=== PATIENT | male | born 1965 | race Caucasian/White ===

== ENCOUNTER 2020-03-20 14:53 | Outpatient (REF) | payer OTHER, SELFPAY ==
--- NOTE | 2020-03-20 14:59 | XR_ITS ---
EXAMINATION: XR CHEST CLINICAL INFORMATION: R50.9 - Fever, unspecified COMPARISON: CT abdomen 08/11/2009 TECHNIQUE: 2 views of the chest were obtained. FINDINGS: The lungs are clear. Groundglass opacity or effusion. The heart is normal in size and the hilar and mediastinal contours are normal. There is broad-based exostosis inferior aspect right first costochondral junction. Bony structures are otherwise unremarkable. XR/XR chest 2V IMPRESSION: Unremarkable examination.
== END 2020-03-20 14:54 | disposition home or self-care (01) ==
LOC: HO.HMGCX 14:53
PROVIDERS: PCP Internal Medicine; Visit Provider Hospitalist
DX: R50.9 Fever, unspecified (principal)
CPT/HCPCS: 71046

== ENCOUNTER 2020-03-20 14:58 | Outpatient (REF) | payer OTHER, SELFPAY | END 2020-03-20 14:59 | disposition home or self-care (01) | LOC: HO.LAB 14:58 | PROVIDERS: Visit Provider Hospitalist | DX: Z20.828 Contact with and (suspected) exposure to other viral communicable diseases (principal) | CPT/HCPCS: U0003 ==

== ENCOUNTER 2021-03-03 06:40 | Outpatient (REF) | payer OTHER, SELFPAY ==
[2021-03-03 11:36] LABS: MANUAL DIFF FLAG NO
[2021-03-03 11:42] LABS: Basophils Percent Auto 0.5 % (0-2); Eosinophils Absolute Auto 0.2 X10*3/uL (0.0-0.4); Hematocrit 46.9 % (42.0-52.0); Hemoglobin 15.8 g/dl (14.0-18.0); Imm Gran Abs Auto 0.06 X10*3/uL (0.00-0.03); Imm Gran Pct Auto 0.8 % (0.0-0.4); Lymphocytes Absolute Auto 1.9 X10*3/uL (1.2-4.9); Mean Corpuscular HGB Conc 33.7 g/dl (31.0-36.0); Mean Corpuscular Hemoglobin 33.2 pg (27.0-33.0); Mean Corpuscular Volume 98.5 fL (80.0-98.0); Mean Platelet Volume 11.1 fL (9.4-12.4); Monocytes Absolute Auto 0.6 X10*3/uL (0.1-1.2); Monocytes Percent Auto 7.2 % (2-11); Neutrophils Percent Auto 64.5 % (45-73); Platelet Count 231 X10*3/uL (160-400); Red Blood Count 4.76 X10*6/uL (4.60-5.80); Red Cell Distribution Width 11.9 % (11.0-16.0); White Blood Count 7.7 X10*3/uL (4.8-10.8)
[2021-03-03 12:18] LABS: Alanine Aminotransferase 19 U/L (0-40); Albumin Level 3.8 g/dL (3.5-5.0); Alkaline Phosphatase 58 U/L (39-117); Anion Gap 12 (12-20); Aspartate Amino Transferase 19 U/L (5-37); Bilirubin Direct 0.2 mg/dL (0.0-0.5); Bilirubin Total 0.5 mg/dL (0.0-1.0); Blood Urea Nitrogen 12 mg/dL (9-16); Calcium 8.9 mg/dL (8.4-10.2); Carbon Dioxide 23 mmol/L (22-29); Chloride 106 mmol/L (96-108); Cholesterol 204 mg/dL; Estimated Glomerular Filt Rate > 60; Glucose Fasting 80 mg/dL (60-99); HDL Cholesterol 36 mg/dL; LDL Cholesterol Calculated 134 mg/dl; Potassium 4.2 mmol/L (3.3-5.1); Sodium 137 mmol/L (135-145); Total Protein 6.5 g/dL (6.5-8.0); Triglycerides 173 mg/dL
[2021-03-03 12:26] LABS: TSH reflex Free T4 1.28 uIU/mL (0.32-4.0)
== END 2021-03-03 06:41 | disposition home or self-care (01) ==
LOC: HO.HMGCLDS 06:40
PROVIDERS: PCP Internal Medicine; Visit Provider Internal Medicine
DX: I10 Essential (primary) hypertension (principal)
CPT/HCPCS: 36415; 80053; 80061; 80076; 84443; 85025

== ENCOUNTER 2021-10-17 09:06 | Outpatient (REF) | payer MEDICAID, SELFPAY ==
[2021-10-17 11:57] LABS: Alanine Aminotransferase 25 U/L (0-40); Albumin Level 4.3 g/dL (3.5-5.0); Alkaline Phosphatase 67 U/L (39-117); Anion Gap 11 (12-20); Aspartate Amino Transferase 19 U/L (5-37); Bilirubin Direct 0.3 mg/dL (0.0-0.5); Bilirubin Total 0.8 mg/dL (0.0-1.0); Blood Urea Nitrogen 12 mg/dL (9-16); Calcium 9.6 mg/dL (8.4-10.2); Carbon Dioxide 28 mmol/L (22-29); Chloride 105 mmol/L (96-108); Estimated Glomerular Filt Rate > 60; Glucose Random 103 mg/dL (60-115); Sodium 139 mmol/L (135-145); Total Protein 7.5 g/dL (6.5-8.0)
== END 2021-10-17 09:07 | disposition home or self-care (01) ==
LOC: HO.HMGCLDS 09:06
PROVIDERS: Visit Provider Internal Medicine
DX: Z00.01 Encounter for general adult medical examination with abnormal findings (principal); I10 Essential (primary) hypertension; E66.09 Other obesity due to excess calories
CPT/HCPCS: 36415; 80053; 82248

== ENCOUNTER 2022-04-17 07:45 | Outpatient (REF) | payer OTHER, SELFPAY ==
[2022-04-17 11:45] LABS: MANUAL DIFF FLAG NO
[2022-04-17 11:50] LABS: Basophils Absolute Auto 0.1 X10*3/uL (0.0-0.2); Basophils Percent Auto 0.8 % (0-2); Eosinophils Absolute Auto 0.1 X10*3/uL (0.0-0.4); Hematocrit 50.6 % (42.0-52.0); Imm Gran Abs Auto 0.05 X10*3/uL (0.00-0.03); Imm Gran Pct Auto 0.8 % (0.0-0.4); Lymphocytes Absolute Auto 2.8 X10*3/uL (1.2-4.9); Lymphocytes Percent Auto 42.8 % (20-40); Mean Corpuscular HGB Conc 33.6 g/dl (31.0-36.0); Mean Corpuscular Hemoglobin 33.2 pg (27.0-33.0); Mean Corpuscular Volume 98.8 fL (80.0-98.0); Mean Platelet Volume 10.8 fL (9.4-12.4); Monocytes Absolute Auto 0.6 X10*3/uL (0.1-1.2); Monocytes Percent Auto 8.8 % (2-11); Neutrophils Absolute Auto 2.9 x10*3/uL (2.0-8.3); Neutrophils Percent Auto 44.8 % (45-73); Platelet Count 255 X10*3/uL (160-400); Red Blood Count 5.12 X10*6/uL (4.60-5.80); Red Cell Distribution Width 11.9 % (11.0-16.0); White Blood Count 6.5 X10*3/uL (4.8-10.8)
[2022-04-17 12:28] LABS: Alanine Aminotransferase 16 U/L (0-40); Albumin Level 3.8 g/dL (3.5-5.0); Alkaline Phosphatase 51 U/L (39-117); Anion Gap 11 (12-20); Aspartate Amino Transferase 15 U/L (5-37); Bilirubin Total 0.7 mg/dL (0.0-1.0); Blood Urea Nitrogen 12 mg/dL (9-16); Calcium 9.1 mg/dL (8.4-10.2); Carbon Dioxide 27 mmol/L (22-29); Chloride 105 mmol/L (96-108); Cholesterol 228 mg/dL; Estimated Glomerular Filt Rate > 60; Glucose Fasting 90 mg/dL (60-99); HDL Cholesterol 41 mg/dL; LDL Cholesterol Calculated 138 mg/dl; Potassium 4.4 mmol/L (3.3-5.1); Sodium 139 mmol/L (135-145); Total Protein 6.7 g/dL (6.5-8.0); Triglycerides 247 mg/dL
== END 2022-04-17 07:46 | disposition home or self-care (01) ==
LOC: HO.HMGCLDS 07:45
PROVIDERS: PCP Internal Medicine; Visit Provider Internal Medicine
DX: E78.9 Disorder of lipoprotein metabolism, unspecified (principal); I10 Essential (primary) hypertension
CPT/HCPCS: 36415; 80053; 80061; 85025

== ENCOUNTER 2022-11-08 13:29 | Outpatient (AMB) | payer OTHER, SELFPAY ==
--- NOTE | 2022-11-08 13:29 | A.OFFPC_ITS ---
Vital Signs 11/08/22 13:30 Height 5 ft 10 in Weight 208 lb 6 oz BMI 29.9 BP 122/82 Blood Pressure Location Rt brachial Position Sitting Pulse 56 Pulse Source Pulse Oximeter Pulse Oximetry (%) 95 Oxygen Delivery Method Room Air Intake Visit Reasons: BP followup Allergies No Known Allergies Allergy (Verified 11/08/22 13:30) Medication List - Last Reconciled 11/08/22 by Eva Barros MD nadolol 40 mg PO DAILY 90 days valsartan 40 mg PO DAILY 90 days Tobacco use date assessed: 11/08/22 Dental Screening Dental Screen Date: 11/08/22 Did you have a dental visit in the last 12 months?: No Did you have a dental problem in the last 6 months where you did not have access to dental care?: No Was dental information given to patient?: No HPI BP followup HPI Details 57-year-old gentleman who was last seen March of this year and missed his regular follow-up appointment after that Patient usually comes every 6 months for follow-up appointment He is taking 2 blood pressure medications neural 40 mg once a day and valsartan 40 mg once a day blood pressure is well controlled patient is tolerating medications Once again explained to patient that it is very important that I see him at least every 6 months so I can keep an eye on his blood pressure and side effects of medications He was also supposed to have labs done 6 months from his last visit which he did not. I have changed the order to nonfasting so patient can have it done today. He will return in February for physical exam appointment. BMI is elevated patient need to lose weight PFSH Surgical History No pertinent past surgical history Family History Father HTN (hypertension) Mother Diabetes mellitus Myocardial infarction Brother No problems noted. Brother No problems noted. Sister No problems noted. Sister No problems noted. Sister No problems noted. Sister No problems noted. Sister No problems noted. Sister No problems noted. Social History Housing: House Alcohol intake: current Alcohol intake frequency: a few times a month Patient Tobacco Use Status: Former Tobacco user (10 years ago ) Tobacco use type: Cigarette Years Smoked: 5 years e-Cigarette/Vaping Use: Never Used Current occupational status: employed Cognitive needs: No Hearing needs: No Vision needs: No Questionnaire Thrive Questionnaire Date Thrive assessed: 10/16/21 AUDIT C Alcohol Use Questionnaire (AUDIT-C) 1. How often do you have a drink containing alcohol?: Never 3. How often do you have six or more drinks on one occasion?: Never Total Score: 0 Score Reviewed/Action Taken: Yes GOSIA-7 AMB Questionnaire GOSIA-7 Date GOSIA - 7 assessed: 10/16/21 Source: Developed by Drs. Kavin Hernandez, Virginia Bashir, Kali Roldan and colleagues, with an educational galileo from [employer]. Review of Systems Const Denies chills and Denies fever(s) ENT Denies epistaxis and Denies nasal discharge Card Denies chest pain Resp Denies chest congestion, Denies cough and Denies hemoptysis GI Denies diarrhea and Denies nausea Skin/Breast Denies rash Neuro Reports no additional complaints Psych Reports no additional complaints Endo Reports no additional complaints Physical exam (Primary Care) Vital Signs: Last Vital Signs Pulse 56 11/08/22 13:30 BP 122/82 11/08/22 13:30 Pulse Ox 95 11/08/22 13:30 Oxygen Delivery Method Room Air 11/08/22 13:30 BMI result Body Mass Index 29.9 Tobacco/Smoking Status: Tobacco use Status Tobacco use date assessed 11/08/22 11/08/22 13:32 Patient Tobacco Use Status Former Tobacco user (11/08/22 13:32 years ago ) Tobacco use type Cigarette 11/08/22 13:32 e-Cigarette/Vaping Use Never Used 11/08/22 13:32 Thrive Assessment: Date of Thrive Assessment Date Thrive assessed 10/16/21 11/08/22 13:32 Const General: cooperative, comfortable and no acute distress Orientation/consciousness: patient oriented x3 HENMT Head: Yes normocephalic Eyes General: appearance normal, both eyes and all related structures Neck Neck: Yes supple Resp Effort & Inspection: normal respiratory effort, no cough and no stridor Cardio Rhythm: regular rhythm Heart sounds: S1 normal heart sound present and S2 normal heart sound present Skin General skin exam: turgor normal Neuro General: patient oriented x3, tone normal and moves all extremities Extrem Right lower extremity: no edema Left lower extremity: no edema Assessment and Plan Assessment & Plan (1) Hypertension, essential: Code(s): I10 - Essential (primary) hypertension (2) Lipid disorder: Code(s): E78.9 - Disorder of lipoprotein metabolism, unspecified (3) Obesity due to excess calories: Code(s): E66.09 - Other obesity due to excess calories Plan 57-year-old gentleman who was last seen March of this year and missed his r egular follow-up appointment after that Patient usually comes every 6 months for follow-up appointment He is taking 2 blood pressure medications neural 40 mg once a day and valsartan 40 mg once a day blood pressure is well controlled patient is tolerating medications Once again explained to patient that it is very important that I see him at least every 6 months so I can keep an eye on his blood pressure and side effects of medications He was also supposed to have labs done 6 months from his last visit which he did not. I have changed the order to nonfasting so patient can have it done today. He will return in February for physical exam appointment. BMI is elevated patient need to lose weight Orders: Orders Comprehensive Met. Panel Today E66.09 - Other obesity due to excess calories, E78.9 - Disorder of lipoprotein metabolism, unspecified, I10 - Essential (primary) hypertension LDL Cholesterol Direct Today E66.09 - Other obesity due to excess calories, E78.9 - Disorder of lipoprotein metabolism, unspecified, I10 - Essential (primary) hypertension Complete Blood Count Auto Diff Today E66.09 - Other obesity due to excess calories, E78.9 - Disorder of lipoprotein metabolism, unspecified, I10 - Ess ential (primary) hypertension Comprehensive [place]. Panel Fast 4 Months E66.09 - Other obesity due to excess calories, E78.9 - Disorder of lipoprotein metabolism, unspecified, I10 - Essential (primary) hypertension Lipid Panel 4 Months E66.09 - Other obesity due to excess calories, E78.9 - Disorder of lipoprotein metabolism, unspecified, I10 - Essential (primary) hypertension Medications: Refilled valsartan 40 mg PO DAILY 90 tabs 1RF 90 days nadolol 40 mg PO DAILY 90 tabs 1RF 90 days Coding Level of Care Code Est Pt Level 3 (35684) Diagnoses Hypertension, essential I10 Lipid disorder E78.9 Obesity due to excess calories E66.09
[2022-11-08 13:30] VITALS: BP 122/82; PULSE 56; O2SAT 95; BMI 29.9
== END 2022-11-08 13:48 | disposition home or self-care (01) ==
PROVIDERS: PCP Internal Medicine; Visit Provider Internal Medicine
DX: I10 Essential (primary) hypertension (principal); E78.9 Disorder of lipoprotein metabolism, unspecified; E66.09 Other obesity due to excess calories; Z68.29 Body mass index [BMI] 29.0-29.9, adult
CPT/HCPCS: 99213

== ENCOUNTER 2022-11-08 13:42 | Outpatient (REF) | payer OTHER, SELFPAY ==
[2022-11-08 16:41] LABS: MANUAL DIFF FLAG NO
[2022-11-08 16:48] LABS: Basophils Percent Auto 0.5 % (0-2); Eosinophils Absolute Auto 0.2 X10*3/uL (0.0-0.4); Hematocrit 47.9 % (42.0-52.0); Hemoglobin 16.8 g/dl (14.0-18.0); Imm Gran Abs Auto 0.06 X10*3/uL (0.00-0.03); Imm Gran Pct Auto 0.8 % (0.0-0.4); Lymphocytes Absolute Auto 2.5 X10*3/uL (1.2-4.9); Lymphocytes Percent Auto 33.6 % (20-40); Mean Corpuscular HGB Conc 35.1 g/dl (31.0-36.0); Mean Corpuscular Hemoglobin 33.6 pg (27.0-33.0); Mean Corpuscular Volume 95.8 fL (80.0-98.0); Mean Platelet Volume 10.9 fL (9.4-12.4); Monocytes Absolute Auto 0.6 X10*3/uL (0.1-1.2); Monocytes Percent Auto 7.3 % (2-11); Neutrophils Absolute Auto 4.2 x10*3/uL (2.0-8.3); Neutrophils Percent Auto 55.8 % (45-73); Platelet Count 258 X10*3/uL (160-400); Red Cell Distribution Width 11.8 % (11.0-16.0); White Blood Count 7.5 X10*3/uL (4.8-10.8)
[2022-11-08 17:06] LABS: Alanine Aminotransferase 19 U/L (0-40); Albumin Level 3.8 g/dL (3.5-5.0); Alkaline Phosphatase 55 U/L (39-117); Anion Gap 10 (12-20); Aspartate Amino Transferase 21 U/L (5-37); Bilirubin Total 0.6 mg/dL (0.0-1.0); Blood Urea Nitrogen 9 mg/dL (9-16); Calcium 9.2 mg/dL (8.4-10.2); Carbon Dioxide 24 mmol/L (22-29); Chloride 106 mmol/L (96-108); Cholesterol 211 mg/dL; Estimated Glomerular Filt Rate > 60; Glucose Fasting 78 mg/dL (60-99); Glucose Random 78 mg/dL (60-115); HDL Cholesterol 42 mg/dL; LDL Cholesterol Calculated 114 mg/dl; Potassium 3.9 mmol/L (3.3-5.1); Sodium 136 mmol/L (135-145); Triglycerides 277 mg/dL
[2022-11-09 16:09] LABS: LDL Cholesterol Direct 141 mg/dL (<100)
== END 2022-11-08 13:43 | disposition home or self-care (01) ==
LOC: HO.HMGCLDS 13:42
PROVIDERS: PCP Internal Medicine; Visit Provider Internal Medicine
DX: E66.09 Other obesity due to excess calories (principal); E78.9 Disorder of lipoprotein metabolism, unspecified; I10 Essential (primary) hypertension
CPT/HCPCS: 36415; 80053; 80061; 83721; 85025

== ENCOUNTER 2023-03-05 10:37 | Outpatient (REF) | payer OTHER, SELFPAY ==
[2023-03-05 13:20] LABS: MANUAL DIFF FLAG NO
[2023-03-05 13:40] LABS: Alanine Aminotransferase 34 U/L (0-40); Alkaline Phosphatase 59 U/L (39-117); Anion Gap 10 (12-20); Aspartate Amino Transferase 29 U/L (5-37); Bilirubin Total 0.6 mg/dL (0.0-1.0); Blood Urea Nitrogen 9 mg/dL (9-16); Calcium 9.2 mg/dL (8.4-10.2); Carbon Dioxide 25 mmol/L (22-29); Chloride 105 mmol/L (96-108); Cholesterol 251 mg/dL (<200); Estimated Glomerular Filt Rate > 60; Glucose Fasting 94 mg/dL (60-99); HDL Cholesterol 41 mg/dL (>40); LDL Cholesterol Calculated 162 mg/dL (<100); Potassium 4.3 mmol/L (3.3-5.1); Sodium 136 mmol/L (135-145); Total Protein 7.4 g/dL (6.5-8.0); Triglycerides 242 mg/dL (<150)
[2023-03-05 13:41] LABS: Basophils Absolute Auto 0.1 X10*3/uL (0.0-0.2); Basophils Percent Auto 1.1 % (0-2); Eosinophils Absolute Auto 0.1 X10*3/uL (0.0-0.4); Eosinophils Percent Auto 1.5 % (0-4); Hematocrit 51.6 % (42.0-52.0); Hemoglobin 17.6 g/dl (14.0-18.0); Imm Gran Abs Auto 0.13 X10*3/uL (0.00-0.03); Imm Gran Pct Auto 1.8 % (0.0-0.4); Lymphocytes Absolute Auto 2.7 X10*3/uL (1.2-4.9); Lymphocytes Percent Auto 36.9 % (20-40); Mean Corpuscular HGB Conc 34.1 g/dl (31.0-36.0); Mean Corpuscular Volume 96.8 fL (80.0-98.0); Mean Platelet Volume 10.3 fL (9.4-12.4); Monocytes Absolute Auto 0.5 X10*3/uL (0.1-1.2); Monocytes Percent Auto 6.9 % (2-11); Neutrophils Absolute Auto 3.8 x10*3/uL (2.0-8.3); Neutrophils Percent Auto 51.8 % (45-73); Platelet Count 358 X10*3/uL (160-400); Red Blood Count 5.33 X10*6/uL (4.60-5.80); Red Cell Distribution Width 11.6 % (11.0-16.0); White Blood Count 7.3 X10*3/uL (4.8-10.8)
== END 2023-03-05 10:38 | disposition home or self-care (01) ==
LOC: HO.HMGCLDS 10:37
PROVIDERS: PCP Internal Medicine; Visit Provider Internal Medicine
DX: I10 Essential (primary) hypertension (principal); E66.09 Other obesity due to excess calories; E78.9 Disorder of lipoprotein metabolism, unspecified
CPT/HCPCS: 36415; 80053; 80061; 85025

== ENCOUNTER 2023-03-05 10:54 | Outpatient (AMB) | payer OTHER, SELFPAY ==
--- NOTE | 2023-03-05 10:57 | A.OFFPC_ITS ---
Vital Signs 03/05/23 10:58 Height 5 ft 10 in Weight 212 lb 4 oz BMI 30.5 BP 124/86 Blood Pressure Location Lt brachial Position Sitting Pulse 55 Pulse Source Pulse Oximeter Pulse Oximetry (%) 96 Oxygen Delivery Method Room Air Intake Visit Reasons: Annual PE- NEEDS PHQ9 + THRIVE Allergies No Known Allergies Allergy (Verified 03/05/23 10:58) Medication List - Last Reconciled 03/05/23 by Eva Barros MD nadolol 40 mg PO DAILY 90 days valsartan 40 mg PO DAILY 90 days Tobacco use date assessed: 03/05/23 Dental Screening Dental Screen Date: 03/05/23 Did you have a dental visit in the last 12 months?: No Did you have a dental problem in the last 6 months where you did not have access to dental care?: No Was dental information given to patient?: No HPI Annual PE- NEEDS PHQ9 + THRIVE HPI Details Patient is a 57-year-old gentleman came in today for physical examination Patient does not want it colonoscopy would agree to do Cologuard Patient is depressed as he lost his job but does not want to take any medication or start therapy BMI is elevated at 30.5 however patient says that it is because of his heavy coat in boots. He just had labs done this morning I do not have the report yet. He was given flu vaccine today Blood pressure is stable continue medications Follow-up 6 months [facility] Surgical History No pertinent past surgical history Family History Father HTN (hypertension) Mother Diabetes mellitus Myocardial infarction Brother No problems noted. Brother No problems noted. Sister No problems noted. Sister No problems noted. Sister No problems noted. Sister No problems noted. Sister No problems noted. Sister No problems noted. Social History Housing: House Alcohol intake: current Alcohol intake frequency: a few times a month Patient Tobacco Use Status: Former Tobacco user (10 years ago ) Tobacco use type: Cigarette Years Smoked: 5 years e-Cigarette/Vaping Use: Never Used Current occupational status: employed Cognitive needs: No Hearing needs: No Vision needs: No Questionnaire PHQ-9 Over the last 2 weeks, how often have you been bothered by any of the following problems? 1. Little interest or pleasure in doing things: more than half the days 2. Feeling down, depressed, or hopeless: several days 3. Trouble falling or staying asleep, or sleeping too much: more than half the days 4. Feeling tired or having little energy: several days 5. Poor appetite or overeating: several days 6. Feeling bad about yourself - or that you are a failure or have let yourself or your family down: several days 7. Trouble concentrating on things, such as reading the newspaper or watching television: more than half the days 8. Moving or speaking so slowly that other people could have noticed. Or the opposite - being so fidgety or restless that you have been moving around a lot more than usual: more than half the days 9. Thoughts that you would be better off or of hurting yourself in some way: not at all Total score: 12 Depression Screening Interpretation: Positive Depression Screening Follow-up: Declines treatment Depression Screening Done: Yes 75341 - PHQ-9 Billing: Yes Source: Developed by Drs. Kavin Hernandez, Virginia Bashir, Kali Roldan and colleagues, with an educational galileo from [employer]. Thrive Questionnaire Date Thrive assessed: 10/16/21 AUDIT C Alcohol Use Questionnaire (AUDIT-C) 1. How often do you have a drink containing alcohol?: Never 3. How often do you have six or more drinks on one occasion?: Never Total Score: 0 Score Reviewed/Action Taken: Yes GOSIA-7 AMB Questionnaire GOSIA-7 Date GOSIA - 7 assessed: 03/05/23 Feeling nervous, anxious, or on edge: 1 = Several days Not being able to stop or control worryin = Not at all Worrying too much about different things: 1 = Several days Trouble relaxin = Several days Being so restless that it is hard to sit still: 1 = Several days Becoming easily annoyed or irritable: 1 = Several days Feeling afraid as if something awful might happen: 1 = Several days Total GOSIA-7 score (0-4 normal; 5-9 mild; 10-14 moderate; 15-21 severe): 6 Source: Developed by Drs. Kavin Hernandez, Virginia Bashir, Kali Roldan and colleagues, with an educational galileo from [employer]. GOSIA-7 Assessment Billing GOSIA-7 Assessment Tool: GOSIA-7 Assessment 96205 Review of Systems Const Denies chills, Denies fever(s) and Denies headache(s) Eyes Denies blurry vision ENT Denies headache(s), Denies nasal discharge, Denies nasal obstruction, Denies odynophagia and Denies sinus pain Card Denies chest pain at rest and Denies chest pain with activity Resp Denies cough and Denies hemoptysis GI Denies diarrhea, Denies odynophagia, Denies vomiting and Denies hematemesis Reports as per HPI Musc Denies abnormal gait Skin/Breast Reports as per HPI Neuro Denies Neuro-related abnormal movements, Denies Abnormal speech present, Denies abnormal gait, Denies headache(s) and Denies Sensory deficit (Neuro) Psych Denies mood swings and Denies paranoia Endo Reports as per HPI Eh/Lymph Reports as per HPI Aller/Immun Reports as per HPI Physical exam (Primary Care) Vital Signs: Last Vital Signs Pulse 55 03/05/23 10:58 BP 124/86 03/05/23 10:58 Pulse Ox 96 03/05/23 10:58 Oxygen Delivery Method Room Air 03/05/23 10:58 BMI result Body Mass Index 30.5 Tobacco/Smoking Status: Tobacco use Status Tobacco use date assessed 03/05/23 03/05/23 11:01 Patient Tobacco Use Status Former Tobacco user (10 03/05/23 11:01 years ago ) Tobacco use type Cigarette 03/05/23 11:01 e-Cigarette/Vaping Use Never Used 03/05/23 11:01 PHQ-9: PHQ-9 Score PHQ-9: Total score 12 03/05/23 11:27 Depression Screening Interpretation: Positive Depression Screening Follow-up: Declines treatment Thrive Assessment: Date of Thrive Assessment Date Thrive assessed 10/16/21 03/05/23 11:01 Const General: cooperative, comfortable and no acute distress Orientation/consciousness: patient oriented x3 HENMT Head: Yes normocephalic and Yes atraumatic Eyes General: appearance normal, both eyes and all related structures Pupils: Equal, round and reactive pupils present EOM: EOMs intact bilaterally Neck Neck: Yes supple and No lymphadenopathy Thyroid: Thyroid normal Lymphatic: no lymphadenopathy noted Resp Effort & Inspection: normal respiratory effort and able to speak in complete sentences Auscultation: clear to auscultation bilaterally Cardio Heart sounds: S1 normal heart sound present and S2 normal heart sound present GI Palpation (GI): Soft to palpation and nontender Auscultation: normal bowel sounds General: Yes no CVA tenderness Back/Spine/Pelvis Back: no CVA tenderness Skin General skin exam: elasticity normal and turgor normal Neuro General: patient oriented x3 and gait normal Cranial nerves: Yes Equal, round and reactive pupils present Speech: No Abnormal speech present Sensory Exam: No Sensory deficit (Neuro) Coordination: tandem gait normal and Romberg test negative Extrem General: Yes normal exam except as noted and No edema Office Procedures Flu Questionnaire Does the patient have a severe egg allergy?: No Does the patient have severe life threatening allergies?: No Does the patient have a fever or illness today?: No Has the patient ever had Guillain-Hockley Syndrome?: No Has the patient ever had any past reaction to a flu shot?: No Immunizations flu vacc [id number] 6mos up(PF) 60 mcg(15 mcgx4)/0.5 mL IM syringe Performing Provider: Eva Barros MD Performing Location: [facility] Administered by: Daryl Estevez CMA on 03/05/23 11:25 Dose Route Admin Location Dispensed Lot Number Expiration Date [facility] 0.5 mL IM Left Deltoid 0.5 mL [id number] 09/28/23 04689-640-15 [employer] VIS Given Date VIS Provided VIS Publication Date 03/05/23 Single Vaccine 20 Eligibility Eligibility Date Funding Source Not [facility] Eligible 03/05/23 Private Assessment and Plan Assessment & Plan (1) Encounter for general adult medical examination with abnormal findings: Code(s): Z00.01 - Encounter for general adult medical examination with abnormal findings (2) Obesity due to excess calories: Code(s): E66.09 - Other obesity due to excess calories Qualifiers: Body mass index: BMI 30.0-30.9 Obesity classification: adult class 1 (BMI 30 - 34.9) Serious obesity comorbidity presence: with serious comorbidity Qualified Code(s): E66.09 - Other obesity due to excess calories; Z68.30 - Body mass index [BMI] 30.0-30.9, adult (3) Major depression, recurrent: Code(s): F33.9 - Major depressive disorder, recurrent, unspecified Qualifiers: Active/Remission status: currently active Major depression episode severity: moderate Qualified Code(s): F33.1 - Major depressive disorder, recurrent, moderate (4) Hypertension, essential: Code(s): I10 - Essential (primary) hypertension (5) Lipid disorder: Code(s): E78.9 - Disorder of lipoprotein metabolism, unspecified Plan Patient is 29-year-old female came in today for physical exam Patient has OBGYN for breast exam and Pap smear Due for lab order placed printed and handed to patient as she is enrolled in weight loss program [facility] And patient will have it done there. Asthma stable she need refills on her inhaler Allergies are stable as well however due to winter season they are acting up and patient ran out of her medications She also have iron-deficiency anemia and is in need of iron supplement refill We will check CBC and iron level as well Patient had elevated calcium with hyperparathyroidism I did refer her to endocrinology but it seems as if patient has lost follow-ups She said she will call them. BMI is 52.6 patient has gained more weight. She declined flu vaccine today Orders: Orders Influenza [id number] Immunization Today Z23 - Encounter for immunization Referrals Cologuard Test Z12.11 - Encounter for screening for malignant neoplasm of colon Coding Level of Care Code Est Pt Prev Care 40-64y(15205) Diagnoses Encounter for general adult medical examination with abnormal findings Z00.01 Class 1 obesity due to excess calories with serious comorbidity and body mass index (BMI) of 30.0 to 30.9 in adult E66.09; Z68.30 Body mass index: BMI 30.0-30.9 Obesity classification: adult class 1 (BMI 30 - 34.9) Serious obesity comorbidity presence: with serious comorbidity Moderate episode of recurrent major depressive disorder F33.1 Active/Remission status: currently active Major depression episode severity: moderate Hypertension, essential I10 Lipid disorder E78.9 Additional Codes GOSIA-7 Assessment Billing - GOSIA-7 Assessment Tool: GOSIA-7 Assessment 40004 ([id number])
[2023-03-05 10:58] VITALS: BP 124/86; PULSE 55; O2SAT 96; BMI 30.5
== END 2023-03-05 11:50 | disposition home or self-care (01) ==
PROVIDERS: PCP Internal Medicine; Visit Provider Internal Medicine
DX: Z00.00 Encounter for general adult medical examination without abnormal findings (principal); F33.1 Major depressive disorder, recurrent, moderate; Z68.30 Body mass index [BMI] 30.0-30.9, adult; Z23 Encounter for immunization; E66.09 Other obesity due to excess calories; I10 Essential (primary) hypertension; E78.9 Disorder of lipoprotein metabolism, unspecified
CPT/HCPCS: 90471; 90686; 99396

== ENCOUNTER 2023-05-07 08:35 | Outpatient (AMB) | payer OTHER, SELFPAY ==
--- NOTE | 2023-05-07 08:39 | MHC.OFFVIS ---
Intake Vital Signs 05/07/23 08:48 Height 5 ft 10 in Weight 204 lb BMI 29.3 BP 134/73 Blood Pressure Location Lt brachial Position Sitting Pulse 55 Intake Visit Reasons: other fecal abnormaliies Intake Note: Patient new consult for Positive Cologuard Patient cc: occasional rectal bleeding and denies any other GI issues. 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 male here today for pre colonoscopy screening.? Patient was sent to us by his PCP.? This is his first colonoscopy screening.? Patient had positive Cologuard. Patient denies any gastrointestinal symptoms in the past or at present.? Denies any personal or family history of gastrointestinal disease, colon polyps, or cancer.? Denies history of difficulty with sedation or anesthesia in the past.? Negative for history of sleep apnea.? Denies any history of cardiac, renal, pulmonary, or hepatic disease.?? No history of infectious? diseases like hepatitis A, B, C, HIV or tuberculosis.? Patient is not on any anticoagulation therapy. [facility] Surgical History No pertinent past surgical history Family History Father HTN (hypertension) Mother Diabetes mellitus Myocardial infarction Brother No problems noted. Brother No problems noted. Sister No problems noted. Sister No problems noted. Sister No problems noted. Sister No problems noted. Sister No problems noted. Sister No problems noted. Social History Housing: House Alcohol intake: current Alcohol intake frequency: a few times a month Patient Tobacco Use Status: Former Tobacco user (10 years ago ) Tobacco use type: Cigarette Years Smoked: 5 years e-Cigarette/Vaping Use: Never Used Current occupational status: employed Cognitive needs: No Hearing needs: No Vision needs: No Review of Systems Const Denies weight gain and Denies weight loss ENT Reports no additional complaints, Denies dysphagia and Denies odynophagia Card Reports no additional complaints Resp Reports no additional complaints GI Denies abdominal pain, Denies belching, Denies melena, Denies bloating, Denies change in bowel habits, Denies dysphagia, Denies excessive flatus, Denies dyspepsia, Denies heartburn, Denies diarrhea, Denies loose stools, Denies nausea, Denies odynophagia and Denies vomiting Reports no additional complaints Musc Reports no additional complaints Neuro Reports no additional complaints Psych Reports no additional complaints Endo Reports no additional complaints Physical Exam Vital Signs: Last Vital Signs Pulse 55 05/07/23 08:48 BP 134/73 05/07/23 08:48 BMI result Body Mass Index 29.3 Const General: healthy appearing, no acute distress and well developed Nutritional Appearance: well nourished Orientation/consciousness: patient oriented x3 Resp Effort & Inspection: normal respiratory effort, able to speak in complete sentences, no tracheal deviation and symmetric chest movement Auscultation: clear to auscultation bilaterally Cardio Rate: regular rate GI Inspection: Yes normal to inspection and No distended Palpation (GI): Soft to palpation, not firm, nontender and No hepatosplenomegaly present Auscultation: normal bowel sounds General: Yes no CVA tenderness Back/Spine/Pelvis Back: no CVA tenderness Skin General skin exam: elasticity normal, turgor normal and dry skin Neuro General: patient oriented x3 Psych Appearance: grossly normal Mental Status: mental status grossly normal Assessment & Plan Assessment & Plan (1) Positive colorectal cancer screening using Cologuard test: Code(s): R19.5 - Other fecal abnormalities Plan Patient denies any GI, cardiac or respiratory symptoms.? Occasional blood for after bowel movement when wiping. Denies any issues with anesthesia in the past.? Denies any history of sleep apnea.? No history infectious diseases in the past or present.? Not on any anticoagulation therapy.? No family or personal history of colon cancer or polyps.? Patient denies melena, hematochezia, unintentional weight loss or ribbon like stools.? Discussed at length the pre-procedure,? prep, diet & medications as well as what to expect prior, during and after the procedure.?? Stressed the importance of good bowel prep. ?Recommended the use of Vaseline or Calmoseptine OTC & baby wipes with bowel movements to promote comfort.? ?Patient verbalizes understanding and agrees to plan of care.? He was given the opportunity to ask questions and all questions answered.? We will see him after the procedure.? Medications: New bisacodyl (Dulcolax (bisacodyl)) take 4 tabs at noon the day before your colonoscopy 20 mg (4 x 5 mg) PO ONCE 1 day 4 tabs 0RF Z12.11 - Encounter for screening for malignant neoplasm of colon polyethylene glycol 3350 (Miralax) As directed by gastroenterology department at [facility] 238 grams PO ONCE 238 grams 0RF Z12.11 - Encounter for screening for malignant neoplasm of colon Coding Level of Care Code New Pt Level 3 (34747) Diagnoses Positive colorectal cancer screening using Cologuard test R19.5 Time Spent (min) 40 Comment 30 minutes spent with patient and additional 10 minutes spent reviewing his records
[2023-05-07 08:48] VITALS: BP 134/73; PULSE 55; BMI 29.3
== END 2023-05-07 09:12 | disposition home or self-care (01) ==
PROVIDERS: PCP Internal Medicine; Visit Provider Nurse Practitioner Family
DX: R19.5 Other fecal abnormalities (principal)
CPT/HCPCS: 99203

== ENCOUNTER → 2023-05-07 08:35 | Outpatient (BNVA) | payer OTHER, SELFPAY | PROVIDERS: PCP Internal Medicine; Visit Provider Nurse Practitioner Family | DX: R19.5 Other fecal abnormalities (principal) | CPT/HCPCS: 99202 ==

== ENCOUNTER 2023-05-07 09:27 | Outpatient (REF) | payer OTHER, SELFPAY ==
[2023-05-07 13:50] LABS: Alanine Aminotransferase 17 U/L (0-40); Albumin Level 4.2 g/dL (3.5-5.0); Alkaline Phosphatase 67 U/L (39-117); Aspartate Amino Transferase 21 U/L (5-37); Bilirubin Direct 0.3 mg/dL (0.0-0.5); Bilirubin Total 0.9 mg/dL (0.0-1.0); Cholesterol 152 mg/dL (<200); HDL Cholesterol 46 mg/dL (>40); LDL Cholesterol Calculated 69 mg/dL (<100); Total Protein 7.7 g/dL (6.5-8.0); Triglycerides 187 mg/dL (<150)
== END 2023-05-07 09:28 | disposition home or self-care (01) ==
LOC: HO.HMGCLDS 09:27
PROVIDERS: PCP Internal Medicine; Visit Provider Internal Medicine
DX: E78.9 Disorder of lipoprotein metabolism, unspecified (principal)
CPT/HCPCS: 36415; 80061; 80076

== ENCOUNTER 2023-07-01 11:43 | Day surgery (SDC) | payer OTHER, SELFPAY ==
--- NOTE | 2023-06-30 09:49 | HO.ANESPROP2 ---
Documented by User: Bruna Max NP 06/30/23 09:49 HPI - Anesthesia Eval Consult details Narrative: 58yo M for Colonoscopy PMFSH Active Problems Active Problems: All Active Problems (Updated 03/29/23 @ 16:44 by Eva Barros MD) Positive colorectal cancer screening using Cologuard test (Acute) Major depression, recurrent (Acute) Lipid disorder (Acute) Colonoscopy refused (Acute) Encounter for general adult medical examination with abnormal findings (Acute) Obesity due to excess calories (Acute) Possible alcohol use disorder on screening for alcoholism (Acute) Uncontrolled hypertension (Acute) Low back strain (Acute) Hypertension, essential (Acute) Fever (Acute) Past Medical History Medical History Major depression, recurrent Obesity due to excess calories Hypertension, essential Family History Family History Father HTN (hypertension) Mother Diabetes mellitus Myocardial infarction Brother No problems noted. Brother No problems noted. Sister No problems noted. Sister No problems noted. Sister No problems noted. Sister No problems noted. Sister No problems noted. Sister No problems noted. Surgical History Surgical History Hx of wisdom tooth extraction Social History Social History Housing: House Alcohol intake: current Alcohol intake frequency: a few times a month Patient Tobacco Use Status: Current someday Tobacco user Tobacco use type: Cigarette Years Smoked: 5 years Smoked in Last 30 Days: Yes e-Cigarette/Vaping Use: Never Used Patient Interested in Nicotine Replacement: No Are you DNR?: No Advance Directives: No Advance Directives Information Provided: Yes Nutrition Risks: No Nutritional Risk Current occupational status: employed Cognitive needs: No Hearing needs: No Vision needs: No Meds Allergies Allergy/AdvReac Type Severity Reaction Status Date / Time No Known Allergies Allergy Verified 05/07/23 08:39 Assessment and Plan Assessment Anesthesia Assessment: Chart Reviewed Documented by User: Tati Martinez MD 07/01/23 12:49 PMFSH Past Medical History Medical History Major depression, recurrent Obesity due to excess calories Hypertension, essential Family History Family History Father HTN (hypertension) Mother Diabetes mellitus Myocardial infarction Brother No problems noted. Brother No problems noted. Sister No problems noted. Sister No problems noted. Sister No problems noted. Sister No problems noted. Sister No problems noted. Sister No problems noted. Surgical History Surgical History Hx of wisdom tooth extraction History of Problems with Anesthesia: No Social History Social History Housing: House Alcohol intake: current Alcohol intake frequency: a few times a month Patient Tobacco Use Status: Current someday Tobacco user Tobacco use type: Cigarette Years Smoked: 5 years Smoked in Last 30 Days: Yes e-Cigarette/Vaping Use: Never Used Patient Interested in Nicotine Replacement: No Are you DNR?: No Advance Directives: No Advance Directives Information Provided: Yes Nutrition Risks: No Nutritional Risk Current occupational status: employed Cognitive needs: No Hearing needs: No Vision needs: No Meds Allergies Allergy/AdvReac Type Severity Reaction Status Date / Time No Known Allergies Allergy Verified 05/07/23 08:39 Exam Airway Mallampati Class: III TM Dist: >3cm Neck ROM: Full Loose/Missing/Broken Teeth: No Heart: RRR Lungs: CTA Assessment and Plan Assessment Anesthesia Assessment: Anesthesia Plan Discussed Final Anesthetic Review History of Problems with Anesthesia: No NPO: Yes ASA Class: II Final Preanesthetic Review: Meds/Allgs Chart Reviewed, Consent Obtained/Reviewed and Anes Risks/Benef Reviewed Patient Risk: Low Procedure Risk: Low Anesthetic Plan Anesthetic Plan: MAC: and Regional Block Disposition: Standard PACU
[2023-07-01 11:50] VITALS: BMI 28.7
[2023-07-01] MEDS: Lactated Ringers 1,000 ML 100 ML IVCONT (12:00)
[2023-07-01 12:08] VITALS: BP 148/92; PULSE 61; RESP 18; TEMP 36.6; O2SAT 96
--- NOTE | 2023-07-01 12:33 | MHC.SHP ---
Pre-Procedural Eval Section A - 24 Hr Update-Section A only Date of Service: 07/01/23 Section B - Complete if H&P > 30 days Chief Complaint: Positive cologuard Relevant Family History (Specify if Yes): No Relevant Social History: None Present Medications: see Short Stay Collaborative assessment History of Previous Operations: No relevant previous surgery Allergies: Allergies Allergy/AdvReac Type Severity Reaction Status Date / Time No Known Allergies Allergy Verified 05/07/23 08:39 Review of Systems Review of Systems Comment: Ten point ROS negative Exam Exam Comment: Gen appear: No acute distress HEENT: no icterus Chest: No overt resp distress Abd: soft, nontender, nondistended Psych: Stable affect, answering questions appropriately Neuro: A/Ox3 noted to move all extremities spontaneously Ext: no peripheral edema Plan Diagnosis/Plan: Unchanged I have reviewed the history and physical and performed a pertinent physical examination on my patient. No changes have occurred unless specified. Time Spent With Patient Time: Total time managing care of this patient today ____ minutes.
--- NOTE | 2023-07-01 13:19 | P.OP_ITS ---
Operative Note Operative Note Date of Service: 07/01/23 Narrative: Procedure: Colonoscopy Indication: Positive cologuard Endoscopist: Heather Stein MD Anesthesia Provider: Dr Tati Martinez Anesthesia type: MAC Instrument: Olympus [id number]-[id number] Consent: Indication, risks vs benefits, and alternatives were discussed with the patient who gave written informed consent to proceed. EKG, pulse, pulse oximetry and blood pressure were monitored throughout the procedure. Please see anesthesia flowsheet. Procedure: The patient was brought to the procedure room and placed in the left lateral decubitus position. IV medications were administered by the anesthesia provider in attendance. A digital rectal exam was performed which was abnormal due to finding of hemorrhoids. A distal attachment cap was affixed to the tip of the scope and the colonoscope was then inserted through the anus and advanced through the colon to the cecum at 75 cm,and terminal ileum. Appendiceal orifice and ileocecal valve were identified. Mucosa was carefully examined under high definition white light as the instrument was slowly withdrawn in a retrograde panoramic fashion. Retroflexion was performed in rectum. The procedure was not difficult. There were no immediate obvious complications. The quality of the prep was BBPS: 3+2+3 = adequate Withdrawal time 22 minutes. Limitations: No limitations. Findings: Mucosa: Normal to cecum and terminal ileum. Protruding lesions: * 1 flat polyp of size 6 mm in cecum. This was raised with Eleview x 2 cc inj in the base of the polyp. Hot snare polypectomy was performed. The polyp was completely removed and retrieved. * 2 pedunculated polyps of size 8 and 20 mm in transverse colon. Hot snare polypectomy was performed. The polyps were completely removed and retrieved. * 1 pedunculated polyp of size 10 mm in descending colon. Hot snare polypectomy was performed. The polyp was completely removed and retrieved. * 1 sessile polyp of size 5 mm in descending colon. Cold snare polypectomy was performed. The polyp was completely removed and retrieved. * 2 sessile polyps of size 4-6 mm in sigmoid colon. Cold snare polypectomy was performed. The polyps were completely removed and retrieved. * Medium internal hemorrhoids stigmata of recent bleeding. Excavated lesions: * Moderate to severe diverticulosis of left colon. Impression: 1. Normal colon and terminal ileum mucosa 2. Total of 7 polyps removed from cecum, transverse, descending, and sigmoid colon. 3. Diverticulosis 4. Internal and external hemorrhoids Recommendations: - Follow path results. - Repeat colonoscopy in 3 years for polyps surveillance - Increase fiber intake
[2023-07-01 13:20] VITALS: BP 105/64; PULSE 52; RESP 18; TEMP 36.4; O2SAT 97
[2023-07-01 13:35] VITALS: BP 111/62; PULSE 47; RESP 18; O2SAT 100
[2023-07-01 13:50] VITALS: BP 144/90; PULSE 48; RESP 18; TEMP 36.1; O2SAT 99
== END 2023-07-01 14:14 | disposition home or self-care (01) ==
PROVIDERS: PCP Internal Medicine; Visit Provider Internal Medicine
PROC: 0DJD8ZZ Inspection of Lower Intestinal Tract, Via Natural or Artificial Opening Endoscopic (ICD-10-PCS; CPT 45378; principal; 2023-07-01 14:00)
DX: R19.5 Other fecal abnormalities (principal); D12.2 Benign neoplasm of ascending colon; D12.4 Benign neoplasm of descending colon; K63.5 Polyp of colon; K57.30 Diverticulosis of large intestine without perforation or abscess without bleeding; K64.8 Other hemorrhoids; K64.4 Residual hemorrhoidal skin tags
CPT/HCPCS: 45385; 45381; 88305; J2250; J2704

== ENCOUNTER → 2023-07-01 11:43 | Outpatient (BNV) | payer OTHER, SELFPAY | PROVIDERS: PCP Internal Medicine; Visit Provider Internal Medicine | DX: Z12.11 Encounter for screening for malignant neoplasm of colon (principal); R19.5 Other fecal abnormalities; D12.3 Benign neoplasm of transverse colon; K63.5 Polyp of colon; K57.90 Diverticulosis of intestine, part unspecified, without perforation or abscess without bleeding; K64.8 Other hemorrhoids | CPT/HCPCS: 45381; 45385 ==

== ENCOUNTER 2023-07-15 13:09 | Outpatient (AMB) | payer OTHER, SELFPAY ==
[2023-07-15 13:18] VITALS: BP 134/85; PULSE 58; BMI 29.4
--- NOTE | 2023-07-15 13:18 | A.OFFVIS_ITS ---
Intake Vital Signs 07/15/23 13:18 Height 5 ft 10 in Weight 205 lb 0.478 oz BMI 29.4 BP 134/85 Blood Pressure Location Lt brachial Position Sitting Pulse 58 Intake Visit Reasons: S/P [place]; Dr. ford Intake Note: Blanco presents in the office as a follow up colonoscopy. CC: No concerns just here for results. Pen Rider Required: No Allergies No Known Allergies Allergy (Verified 07/15/23 13:19) HPI S/P [place]; Dr. ford HPI Details LAST VISIT: Positive colorectal cancer screening using Cologuard test Plan Patient denies any GI, cardiac or respiratory symptoms.? Occasional blood for after bowel movement when wiping. Denies any issues with anesthesia in the past.? Denies any history of sleep apnea.? No history infectious diseases in the past or present.? Not on any anticoagulation therapy.? No family or personal history of colon cancer or polyps.? Patient denies melena, hematochezia, unintentional weight loss or ribbon like stools.? Discussed at length the pre- procedure,? prep, diet & medications as well as what to expect prior, during and after the procedure.?? Stressed the importance of good bowel prep. ?Recommended the use of Vaseline or Calmoseptine OTC & baby wipes with bowel movements to pro mote comfort.? ?Patient verbalizes understanding and agrees to plan of care.? He was given the opportunity to ask questions and all questions answered.? We will see him after the procedure.? Medications New bisacodyl (Dulcolax (bisacodyl)) take 4 tabs at noon the day before your colonoscopy 20 mg (4 x 5 mg) PO ONCE 1 day 4 tabs 0R F Z12.11 polyethylene glycol 3350 (Miralax) As directed by gastroenterology department at [facility] 238 grams PO ONCE 238 grams 0RF Z12.11 COLONOSCOPY Findings: Mucosa: Normal to cecum and terminal ileum. Protruding lesions: * 1 flat polyp of size 6 mm in cecum. This was raised with Eleview x 2 cc inj in the base of the polyp. Hot snare polypectomy was performed. The polyp was completely removed and retrieved. * 2 pedunculated polyps of size 8 and 20 mm in transverse colon. Hot snare polypectomy was performed. The polyps were completely removed and retrieved. * 1 pedunculated polyp of size 10 mm in descending colon. Hot snare polypectomy was performed. The polyp was completely removed and retrieved. * 1 sessile polyp of size 5 mm in descending colon. Cold snare polypectomy was performed. The polyp was completely removed and retrieved. * 2 sessile polyps of size 4-6 mm in sigmoid colon. Cold snare polypectomy was performed. The polyps were completely removed and retrieved. * Medium internal hemorrhoids stigmata of recent bleeding. Excavated lesions: * Moderate to severe diverticulosis of left colon. Impression: 1. Normal colon and terminal ileum mucos a 2. Total of 7 polyps removed from cecum, transverse, descending, and sigmoid colon. 3. Diverticulosis 4. Internal and external hemorrhoids Recommendations: - Follow path results. - Repeat colonoscopy in 3 years for poly ps surveillance - Increase fiber intake PATHOLOGY RESULTS Diagnosis A. Colon, descending, polypectomies: Tubular adenomata; negative for high-grade dysplasia or carcinoma. B. Colon, right, polypectomies: Fragments of tubular adenomata; negative for high-grade dysplasia or carcinoma. C. Colon, sigmoid, polypectomies: Hyperplastic mucosal polyps TODAY'S VISIT Patient is here today for follow-up and to discuss colonoscopy results. Patient denies any ill effects from the prep, anesthesia or procedure itself. Patient reports that he has been doing well. No issues after procedure. Right-sided colon and descending colon tubular adenoma found without high-grade dysplasia or carcinoma and 1 hyperplastic mucosal polyp found in sigmoid colon. Patient reports that he is moving his bowels well. Denies any GI concerning symptoms. [facility] Medical History (Updated 07/15/23 @ 13:32 by Aubree Rodrigues [employer]-) Diverticulosis Tubular adenoma of colon Major depression, recurrent Obesity due to excess calories Hypertension, essential Surgical History (Updated 07/15/23 @ 13:19 by SAVANNAH Bacon) Hx of colonoscopy Hx of wisdom tooth extraction Family History Father HTN (hypertension) Mother Diabetes mellitus Myocardial infarction Brother No problems noted. Brother No problems noted. Sister No problems noted. Sister No problems noted. Sister No problems noted. Sister No problems noted. Sister No problems noted. Sister No problems noted. Social History Housing: House Alcohol intake: current Alcohol intake frequency: a few times a month Patient Tobacco Use Status: Current someday Tobacco user Tobacco use type: Cigarette Years Smoked: 5 years e-Cigarette/Vaping Use: Never Used Current occupational status: employed Cognitive needs: No Hearing needs: No Vision needs: No Review of Systems Const Denies weight gain and Denies weight loss ENT Reports no additional complaints, Denies dysphagia and Denies odynophagia Card Reports no additional complaints Resp Reports no additional complaints GI Denies abdominal pain, Denies belching, Denies melena, Denies bloating, Denies change in bowel habits, Denies dysphagia, Denies excessive flatus, Denies dyspepsia, Denies heartburn, Denies diarrhea, Denies loose stools, Denies nausea, Denies odynophagia and Denies vomiting Reports no additional complaints Musc Reports no additional complaints Neuro Reports no additional complaints Psych Reports no additional complaints Endo Reports no additional complaints Physical Exam Vital Signs: Last Vital Signs Pulse 58 07/15/23 13:18 BP 134/85 07/15/23 13:18 BMI result Body Mass Index 29.4 Const General: healthy appearing, no acute distress and well developed Nutritional Appearance: well nourished Orientation/consciousness: patient oriented x3 Resp Effort & Inspection: normal respiratory effort, able to speak in complete sentences, no tracheal deviation and symmetric chest movement Auscultation: clear to auscultation bilaterally Cardio Rate: regular rate GI Inspection: Yes normal to inspection and No distended Palpation (GI): Soft to palpation, not firm, nontender and No hepatosplenomegaly present Auscultation: normal bowel sounds General: Yes no CVA tenderness Back/Spine/Pelvis Back: no CVA tenderness Skin General skin exam: elasticity normal, turgor normal and dry skin Neuro General: patient oriented x3 Psych Appearance: grossly normal Mental Status: mental status grossly normal Assessment & Plan Assessment & Plan (1) Tubular adenoma of colon: Code(s): D12.6 - Benign neoplasm of colon, unspecified (2) Diverticulosis: Code(s): K57.90 - Diverticulosis of intestine, part unspecified, without perforation or abscess without bleeding (3) Screen for colon cancer: Code(s): Z12.11 - Encounter for screening for malignant neoplasm of colon Plan As mentioned above in HPI patient was found to have tubular adenoma without high-grade dysplasia and carcinoma in the right side of the colon and in descending colon. One hyperplastic polyp. Patient will return for colorectal screening in 3 years, sooner if clinically necessary. Discussed with patient the importance of high-fiber diet. Patient can take [id number] probiotic. List of food high in fiber given to patient. Patient will return to our office on as needed basis. Patient is agreeable to this plan and verbalizes understanding of instructions. He was given the opportunity to ask questions and all questions answered. Thank you for allowing me to participate in his care Coding Level of Care Code Est Pt Level 3 (39660) Diagnoses Tubular adenoma of colon D12.6 Diverticulosis K57.90 Screen for colon cancer Z12.11 Time Spent (min) 25 Comment 15 minutes spent with patient and additional 10 minutes spent reviewing his records
== END 2023-07-15 14:00 | disposition home or self-care (01) ==
PROVIDERS: PCP Internal Medicine; Visit Provider Nurse Practitioner Family
DX: D12.6 Benign neoplasm of colon, unspecified (principal); K57.90 Diverticulosis of intestine, part unspecified, without perforation or abscess without bleeding; Z12.11 Encounter for screening for malignant neoplasm of colon
CPT/HCPCS: 99213

== ENCOUNTER → 2023-07-15 13:09 | Outpatient (BNVA) | payer OTHER, SELFPAY | PROVIDERS: PCP Internal Medicine; Visit Provider Nurse Practitioner Family | DX: Z12.11 Encounter for screening for malignant neoplasm of colon (principal); K57.90 Diverticulosis of intestine, part unspecified, without perforation or abscess without bleeding; D12.6 Benign neoplasm of colon, unspecified | CPT/HCPCS: 99212 ==

== ENCOUNTER 2023-09-03 08:50 | Outpatient (AMB) | payer OTHER, SELFPAY ==
--- NOTE | 2023-09-03 09:02 | MHC.PC.OV ---
Intake Visit Reasons: 6 month fu Allergies No Known Allergies Allergy (Verified 09/03/23 09:03) Medication List - Last Reconciled 09/03/23 by Eva Barros MD atorvastatin 80 mg PO DAILY clopidogrel 75 mg PO DAILY metoprolol succinate ER 50 mg PO DAILY spironolactone 25 mg PO DAILY thiamine HCl (vitamin B1) 100 mg PO DAILY torsemide 20 mg PO DAILY valsartan 40 mg PO DAILY 90 days Tobacco use date assessed: 09/03/23 Dental Screening Dental Screen Date: 09/03/23 Did you have a dental visit in the last 12 months?: Yes Did you have a dental problem in the last 6 months where you did not have access to dental care?: No Was dental information given to patient?: Patient has dentist HPI 6 month fu HPI Details Patient is 58 year old gentleman with the history of hypertension, tobacco abuse, cocaine abuse Cocaine was positive at the day of admission however patient verbalize to taking it 2 weeks ago Presented to [facility] on 17 of August with the chief complaint of shortness of breath dizziness and chest pain. 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 Echo heart showed basilar interior wall echinacea with ejection fraction of 30 to 35% Patient's Hospital course was complicated when he developed Paroxysmal fibrillation Further procedures were postponed due to that complication Patient ended up having amodrone drip Finally he was stabilized and was discharged with some modification of medications to follow up with state archivist as an outpatient He is currently taking Atorvastatin 80 mg Plavix Metoprolol 50 mg Aldacton?50 mg Torsiamide Valsartan 40 He is currently doing well and is stable his shortness of breath has improved he does not have any chest pain Patient is aware of his Cardiology appointment that is coming up in few days with [facility] state archivist 45 minute spent reviewing Hospital notes, discussing with the patient, documenting medications/charting / coordination of care. [facility] Medical History (Updated 09/03/23 @ 17:18 by Eva Barros MD) Hypertension, essential Diverticulosis Tubular adenoma of colon Major depression, recurrent Obesity due to excess calories Surgical History Hx of colonoscopy Hx of wisdom tooth extraction Family History Father HTN (hypertension) Mother Diabetes mellitus Myocardial infarction Brother No problems noted. Brother No problems noted. Sister No problems noted. Sister No problems noted. Sister No problems noted. Sister No problems noted. Sister No problems noted. Sister No problems noted. Social History Housing: House Alcohol intake: current Alcohol intake frequency: a few times a month Patient Tobacco Use Status: Current someday Tobacco user Tobacco use type: Cigarette Years Smoked: 5 years e-Cigarette/Vaping Use: Never Used Current occupational status: employed Cognitive needs: No Hearing needs: No Vision needs: No Questionnaire Thrive Questionnaire Date Thrive assessed: 10/16/21 AUDIT C Alcohol Use Questionnaire (AUDIT-C) 1. How often do you have a drink containing alcohol?: Never 3. How often do you have six or more drinks on one occasion?: Never Total Score: 0 Score Reviewed/Action Taken: Yes GOSIA-7 AMB Questionnaire GOSIA-7 Date GOSIA - 7 assessed: 03/05/23 Source: Developed by Drs. Kavin Hernandez, Virginia Bashir, Kali Roldan and colleagues, with an educational galileo from [employer]. Review of Systems Const Denies chills and Denies fever(s) ENT Denies epistaxis and Denies nasal discharge Resp Denies chest congestion, Denies cough and Denies hemoptysis GI Denies diarrhea and Denies nausea Skin/Breast Denies rash Neuro Reports no additional complaints Psych Reports no additional complaints Endo Reports no additional complaints Physical exam (Primary Care) Tobacco/Smoking Status: Tobacco use Status Tobacco use date assessed 09/03/23 09/03/23 09:05 Patient Tobacco Use Status Current someday Tobacco 09/03/23 09:05 Tobacco use type Cigarette 09/03/23 09:05 e-Cigarette/Vaping Use Never Used 09/03/23 09:05 Thrive Assessment: Date of Thrive Assessment Date Thrive assessed 10/16/21 09/03/23 09:05 Const General: cooperative, comfortable and no acute distress Orientation/consciousness: patient oriented x3 HENMT Head: Yes normocephalic Eyes General: appearance normal, both eyes and all related structures Neck Neck: Yes supple Resp Effort & Inspection: normal respiratory effort, no cough and no stridor Cardio Rhythm: regular rhythm Heart sounds: S1 normal heart sound present and S2 normal heart sound present Skin General skin exam: turgor normal Neuro General: patient oriented x3, tone normal and moves all extremities Extrem Right lower extremity: no edema Left lower extremity: no edema Telehealth Telehealth Telehealth Platform: [employer] Location of provider rendering services: practice address Location of patient: address on file Patient Identification confirmed using: Name, : Yes Telehealth method: video (attempted) Patient verbally consented to treatment: Yes Patient verbally consented to billing insurance company: Yes Patient informed of any privacy concerns related to visit: Yes Assessment and Plan Assessment & Plan (1) Hospital discharge follow-up: Code(s): Z09 - Encounter for follow-up examination after completed treatment for conditions other than malignant neoplasm (2) NSTEMI (non-ST elevated myocardial infarction): Code(s): I21.4 - Non-ST elevation (NSTEMI) myocardial infarction (3) Heart failure: Code(s): I50.9 - Heart failure, unspecified Qualifiers: Heart failure chronicity: acute Heart failure type: unspecified Qualified Code(s): I50.9 - Heart failure, unspecified (4) Cocaine abuse: Code(s): F14.10 - Cocaine abuse, uncomplicated (5) Tobacco abuse: Code(s): Z72.0 - Tobacco use (6) A-fib: Code(s): I48.91 - Unspecified atrial fibrillation Qualifiers: Atrial fibrillation type: paroxysmal Qualified Code(s): I48.0 - Paroxysmal atrial fibrillation (7) CAD (coronary artery disease): Code(s): I25.10 - Atherosclerotic heart disease of [place] coronary artery without angina pectoris Qualifiers: Coronary Disease-Associated Artery/Lesion type: [place] artery [place] vs. transplanted heart: [place] heart Associated angina: without angina Qualified Code(s): I25.10 - Atherosclerotic heart disease of [place] coronary artery without angina pectoris (8) Lipid disorder: Code(s): E78.9 - Disorder of lipoprotein metabolism, unspecified (9) Hypertension, essential: Code(s): I10 - Essential (primary) hypertension Plan Patient is 58 year old gentleman with the history of hypertension, tobacco abuse, cocaine abuse Cocaine was positive at the day of admission however patient verbalize to taking it 2 weeks ago Presented to [facility] on 17 of August with the chief complaint of shortness of breath dizziness and chest pain. 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 Echo heart showed basilar interior wall echinacea with ejection fraction of 30 to 35% Patient's Hospital course was complicated when he developed Paroxysmal fibrillation Further procedures were postponed due to that complication Patient ended up having amodrone drip Finally he was stabilized and was discharged with some modification of medications to follow up with state archivist as an outpatient He is currently taking Atorvastatin 80 mg Plavix Metoprolol 50 mg Aldacton?50 mg Torsiamide Valsartan 40 He is currently doing well and is stable his shortness of breath has improved he does not have any chest pain Patient is aware of his Cardiology appointment that is coming up in few days with [facility] state archivist 45 minute spent reviewing Hospital notes, discussing with the patient, documenting medications/charting / coordination of care. Coding Level of Care Code Tele Est Pt Level 5 (77425) Diagnoses Hospital discharge follow-up Z09 NSTEMI (non-ST elevated myocardial infarction) I21.4 Acute heart failure, unspecified heart failure type I50.9 Heart failure chronicity: acute Heart failure type: unspecified Cocaine abuse F14.10 Tobacco abuse Z72.0 Paroxysmal atrial fibrillation I48.0 Atrial fibrillation type: paroxysmal Coronary artery disease involving [place] coronary artery of [place] heart without angina pectoris I25.10 Coronary Disease-Associated Artery/Lesion type: [place] artery [place] vs. transplanted heart: [place] heart Associated angina: without angina Lipid disorder E78.9 Hypertension, essential I10
== END 2023-09-03 12:14 | disposition home or self-care (01) ==
LOC: HO.HMGC 08:50
PROVIDERS: PCP Internal Medicine; Visit Provider Internal Medicine
DX: I50.9 Heart failure, unspecified (principal); F14.10 Cocaine abuse, uncomplicated; I48.0 Paroxysmal atrial fibrillation; I25.2 Old myocardial infarction; Z09 Encounter for follow-up examination after completed treatment for conditions other than malignant neoplasm; Z72.0 Tobacco use; I25.10 Atherosclerotic heart disease of native coronary artery without angina pectoris; E78.9 Disorder of lipoprotein metabolism, unspecified; I10 Essential (primary) hypertension
CPT/HCPCS: 99215

== ENCOUNTER 2023-10-24 10:37 | Outpatient (AMB) | payer OTHER, SELFPAY ==
[2023-10-24 10:44] VITALS: BP 102/66; PULSE 62; O2SAT 98; BMI 28.0
--- NOTE | 2023-10-24 10:44 | A.OFFPC_ITS ---
Vital Signs 10/24/23 10:44 Height 5 ft 10 in Weight 195 lb BMI 28.0 BP 102/66 Blood Pressure Location Rt brachial Position Sitting Pulse 62 Pulse Source Pulse Oximeter Pulse Oximetry (%) 98 Oxygen Delivery Method Room Air Intake Visit Reasons: HDF~ Heart Attack Allergies No Known Allergies Allergy (Verified 10/24/23 10:45) Medication List - Last Reconciled 10/24/23 by Eva Barros MD amiodarone 200 mg PO BID atorvastatin 80 mg PO DAILY clopidogrel 75 mg PO DAILY dapagliflozin propanediol (Farxiga) 5 mg PO DAILY metoprolol succinate ER 50 mg PO DAILY spironolactone 25 mg PO DAILY thiamine HCl (vitamin B1) 100 mg PO DAILY torsemide 20 mg PO DAILY valsartan 40 mg PO DAILY 90 days Tobacco use date assessed: 09/03/23 Dental Screening Dental Screen Date: 09/03/23 HPI HDF~ Heart Attack HPI Details Patient is a 58-year-old gentleman with a history of hypertension, history of cocaine use, coronary artery disease, ischemic cardiomyopathy He presented to emergency room on 01 of October with a chief complaint of abdominal pain On arrival to emergency room patient was tachycardic Bedside cardiac ultrasound showed hypokinesia with a reduced ejection fraction and slight pericardial effusion with no evidence of tamponade. Patient was given 1 L of IV fluids CTA chest and abdomen was obtained to rule out aortic dissection Patient was found to have leukocytosis of 15.9 of unclear etiology His troponin was elevated at 280 Dr. John Wang was consulted and digoxin was started along with metopr olol and heparin drip Patient was admitted to telemetry unit CT angio did not show any evidence of dissection His EKG was consistent with atrial fibrillation, RVR with a rate of 150s and 160s After treatment patient was diagnosed with a diagnosis of Chronic atrial fibrillation with RVR Coronary artery disease of [place] artery Heart failure with reduced ejection fraction 30% Abdominal pain Constipation He was started on amiodarone 400 mg daily Farxiga 5 mg daily Eliquis 5 mg b.i.d. 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 Brother No problems noted. Sister No problems noted. Sister No problems noted. Sister No problems noted. Sister No problems noted. Sister No problems noted. Sister No problems noted. Social History Housing: House Alcohol intake: current Alcohol intake frequency: a few times a month Patient Tobacco Use Status: Current someday Tobacco user Tobacco use type: Cigarette Years Smoked: 5 years e-Cigarette/Vaping Use: Never Used Current occupational status: employed Cognitive needs: No Hearing needs: No Vision needs: No Questionnaire PHQ-9 Over the last 2 weeks, how often have you been bothered by any of the following problems? 1. Little interest or pleasure in doing things: not at all 2. Feeling down, depressed, or hopeless: several days 3. Trouble falling or staying asleep, or sleeping too much: several days 4. Feeling tired or having little energy: several days 5. Poor appetite or overeating: several days 6. Feeling bad about yourself - or that you are a failure or have let yourself or your family down: not at all 7. Trouble concentrating on things, such as reading the newspaper or watching television: several days 8. Moving or speaking so slowly that other people could have noticed. Or the opposite - being so fidgety or restless that you have been moving around a lot more than usual: several days 9. Thoughts that you would be better off or of hurting yourself in some way: not at all Total score: 6 Depression Screening Interpretation: Negative Depression Screening Done: Yes 60719 - PHQ-9 Billing: Yes Source: Developed by Drs. Kavin Hernandez, Virginia Bashir, Kali Roldan and colleagues, with an educational galileo from [email or web address]. Thrive Questionnaire Date Thrive assessed: 10/24/23 I am a: Patient What is your living situation today?: I have a steady place to live Within the past 12 months, did the food you bought not last and you didn't have the money to get more?: Sometimes True Within the past 12 months, did you worry whether your food would run out before you got money to buy more?: Sometimes True Do you have trouble paying for medicines?: I choose not to answer this question Do you have trouble getting transportation to medical appointments?: No Do you have trouble paying your heating and electricity bill?: Yes Do you have trouble taking care of your child, family member or friend?: I choose not to answer this question Do you have trouble with day-to-day activities such as bathing, preparing meals, shopping, managing finances, etc.?: No Are you currently unemployed and looking for a job?: No Are you interested in more education?: No Please select the resources that you would like help with: Housing/Penitentiary Currently or been in a relationship where the following occur: No concerns reported THRIVE Score: 3 AUDIT C Alcohol Use Questionnaire (AUDIT-C) 1. How often do you have a drink containing alcohol?: 2-4 times a month 2. How many drinks containing alcohol do you have on a typical day when you are drinking?: 3 or 4 3. How often do you have six or more drinks on one occasion?: Less than monthly Total Score: 4 Score Reviewed/Action Taken: Yes GOSIA-7 AMB Questionnaire GOSIA-7 Date GOSIA - 7 assessed: 10/24/23 Feeling nervous, anxious, or on edge: 1 = Several days Not being able to stop or control worryin = Several days Worrying too much about different things: 1 = Several days Trouble relaxin = Several days Being so restless that it is hard to sit still: 1 = Several days Becoming easily annoyed or irritable: 1 = Several days Feeling afraid as if something awful might happen: 1 = Several days Total GOSIA-7 score (0-4 normal; 5-9 mild; 10-14 moderate; 15-21 severe): 7 Source: Developed by Drs. Kavin Hernandez, Virginia Bashir, Klai Roldan and colleagues, with an educational galileo from [email or web address]. GOSIA-7 Assessment Billing GOSIA-7 Assessment Tool: GOSIA-7 Assessment 33676 Review of Systems Const Denies chills and Denies fever(s) ENT Denies epistaxis and Denies nasal discharge Card Denies chest pain Resp Denies chest congestion, Denies cough and Denies hemoptysis GI Denies diarrhea and Denies nausea Skin/Breast Denies rash Neuro Reports no additional complaints Psych Reports no additional complaints Endo Reports no additional complaints Physical exam (Primary Care) Vital Signs: Last Vital Signs Pulse 62 10/24/23 10:44 BP 102/66 10/24/23 10:44 Pulse Ox 98 10/24/23 10:44 Oxygen Delivery Method Room Air 10/24/23 10:44 BMI result Body Mass Index 28.0 Tobacco/Smoking Status: Tobacco use Status Tobacco use date assessed 09/03/23 10/24/23 10:48 Patient Tobacco Use Status Current someday Tobacco 10/24/23 10:48 Tobacco use type Cigarette 10/24/23 10:48 e-Cigarette/Vaping Use Never Used 10/24/23 10:48 PHQ-9: PHQ-9 Score PHQ-9: Total score 6 10/24/23 11:46 Depression Screening Interpretation: Negative Thrive Assessment: Date of Thrive Assessment Date Thrive assessed 10/24/23 10/24/23 10:48 Currently or been in a relationship where the following occur: No concerns reported Const General: cooperative, comfortable and no acute distress Orientation/consciousness: patient oriented x3 HENAZ Head: Yes normocephalic Eyes General: appearance normal, both eyes and all related structures Neck Neck: Yes supple Resp Effort & Inspection: normal respiratory effort, no cough and no stridor Cardio Rhythm: regular rhythm Heart sounds: S1 normal heart sound present and S2 normal heart sound present Skin General skin exam: turgor normal Neuro General: patient oriented x3, tone normal and moves all extremities Extrem Right lower extremity: no edema Left lower extremity: no edema Assessment and Plan Assessment & Plan (1) Hospital discharge follow-up: Code(s): Z09 - Encounter for follow-up examination after completed treatment for conditions other than malignant neoplasm (2) Ventricular hypokinesia: Code(s): I51.89 - Other ill-defined heart diseases (3) Heart failure: Code(s): I50.9 - Heart failure, unspecified Qualifiers: Heart failure chronicity: acute Heart failure type: unspecified Qualified Code(s): I50.9 - Heart failure, unspecified (4) NSTEMI (non-ST elevated myocardial infarction): Code(s): I21.4 - Non-ST elevation (NSTEMI) myocardial infarction (5) CAD (coronary artery disease): Code(s): I25.10 - Atherosclerotic heart disease of [place] coronary artery without angina pectoris Qualifiers: Associated angina: without angina Coronary Disease-Associated Artery/Lesion type: [place] artery [place] vs. transplanted heart: [place] heart Qualified Code(s): I25.10 - Atherosclerotic heart disease of [place] coronary artery without angina pectoris (6) A-fib: Code(s): I48.91 - Unspecified atrial fibrillation Qualifiers: Atrial fibrillation type: paroxysmal Qualified Code(s): I48.0 - Paroxy smal atrial fibrillation (7) Tobacco abuse: Code(s): Z72.0 - Tobacco use (8) Lightheadedness: Code(s): R42 - Dizziness and giddiness (9) Hx of long term care social worker use of blood thinners: Code(s): Z92.29 - Personal history of other drug therapy (10) Risk for falls: Code(s): Z91.81 - History of falling Plan Patient is a 58-year-old gentleman with a history of hypertension, history of c ocaine use, coronary artery disease, ischemic cardiomyopathy He presented to emergency room on 01 of October with a chief complaint of abdominal pain On arrival to emergency room patient was tachycardic Bedside cardiac ultrasound showed hypokinesia with a reduced ejection fraction and slight pericardial effusion with no evidence of tamponade. Patient was given 1 L of IV fluids CTA chest and abdomen was obtained to rule out aortic dissection Patient was found to have leukocytosis of 15.9 of unclear etiology His troponin was elevated at 280 Dr. John Wang was consulted and digoxin was started along with metoprolol and heparin drip Patient was admitted to telemetry unit CT angio did not show any evidence of dissection His EKG was consistent with atrial fibrillation, RVR with a rate of 150s and 160s After treatment patient was diagnosed with a diagnosis of Chronic atrial fibrillation with RVR Coronary artery disease of [place] artery Heart failure with reduced ejection fraction 30% Abdominal pain Constipation He was started on amiodarone 400 mg daily Farxiga 5 mg daily Eliquis 5 mg b.i.d. 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 next month Patient says that he has enough medications till then Patient is in regular cardiac rhythm at this time 46 minute spent in care of this patient Coding Level of Care Code Est Pt Level 5 (42585) Diagnoses Hospital discharge follow-up Z09 Ventricular hypokinesia I51.89 Acute heart failure, unspecified heart failure type I50.9 Heart failure chronicity: acute Heart failure type: unspecified NSTEMI (non-ST elevated myocardial infarction) I21.4 Coronary artery disease involving [place] coronary artery of [place] heart without angina pectoris I25.10 Associated angina: without angina Coronary Disease-Associated Artery/Lesion type: [place] artery [place] vs. transplanted heart: [place] heart Paroxysmal atrial fibrillation I48.0 Atrial fibrillation type: paroxysmal Tobacco abuse Z72.0 Lightheadedness R42 Hx of residential use of blood thinners Z92.29 Risk for falls Z91.81 Additional Codes GOSIA-7 Assessment Billing - GOSIA-7 Assessment Tool: GOSIA-7 Assessment 60033 ([id number])
== END 2023-10-24 17:41 | disposition home or self-care (01) ==
PROVIDERS: PCP Internal Medicine; Visit Provider Internal Medicine
DX: I50.9 Heart failure, unspecified (principal); I48.0 Paroxysmal atrial fibrillation; I25.2 Old myocardial infarction; Z09 Encounter for follow-up examination after completed treatment for conditions other than malignant neoplasm; I51.89 Other ill-defined heart diseases; I25.10 Atherosclerotic heart disease of native coronary artery without angina pectoris; Z72.0 Tobacco use; R42 Dizziness and giddiness; Z92.29 Personal history of other drug therapy; Z91.81 History of falling
CPT/HCPCS: 99215

== ENCOUNTER 2024-03-17 15:18 | Outpatient (AMB) | payer OTHER, SELFPAY ==
[2024-03-17 15:22] VITALS: BP 108/72; PULSE 62; O2SAT 98; BMI 28.9
--- NOTE | 2024-03-17 15:22 | MHC.PC.OV ---
Vital Signs 03/17/24 15:22 Height 5 ft 10 in Weight 201 lb 4 oz BMI 28.9 BP 108/72 Blood Pressure Location Rt brachial Position Sitting Pulse 62 Pulse Source Pulse Oximeter Pulse Oximetry (%) 98 Oxygen Delivery Method Room Air Intake Visit Reasons: Annual PE Allergies No Known Allergies Allergy (Verified 03/17/24 15:22) Medication List - Last Reconciled 03/17/24 by Eva Barros MD amiodarone 200 mg PO BID apixaban (Eliquis) 5 mg PO BID atorvastatin 80 mg PO DAILY clopidogrel 75 mg PO DAILY dapagliflozin propanediol (Farxiga) 5 mg PO DAILY metoprolol succinate ER 50 mg PO DAILY spironolactone 25 mg PO DAILY thiamine HCl (vitamin B1) 100 mg PO DAILY torsemide 20 mg PO DAILY valsartan 40 mg PO DAILY 90 days Tobacco use date assessed: 03/17/24 Dental Screening Dental Screen Date: 03/17/24 Did you have a dental visit in the last 12 months?: Yes Did you have a dental problem in the last 6 months where you did not have access to dental care?: No Was dental information given to patient?: Patient has dentist HPI Annual PE HPI Details History - bulleted - The patient is a 58 year old male presenting for a routine physical examination. - coronary artery stenting: Hospitalized earlier, management involves multiple anticoagulants. - Hypertension: Currently being managed through Cardiology - Hyperlipidemia: Undergone recent lipid profile testing two months ago. Health Maintenance - Colonoscopy performed in June by Dr. [facility]; next scheduled in three years. - Flu vaccine requested during the visit. [place] of Care - Care coordinated through cardiology at [facility], with next appointment on May 26. - [facility] Medications - Amiodarone - Eliquis (Apixaban) - Atorvastatin for Hyperlipidemia - Clopidogrel - Valsartan for Hypertension - Spironolactone for Heart Failure - Vitamin B1 Review of Systems - Cardiovascular: No chest pains - General: No fever no chills - Neurological: No headaches no dizziness - Ear nose throat: No sore throat no hearing difficulty no ear pain - Musculoskeletal: Usual aches and pains nothing new - Cardiovascular: No syncope, no chest pain, no palpitations - Gastrointestinal: No nausea vomiting or diarrhea - Endocrine: No polyuria polydipsia no heat intolerance - Genitourinary: No dysuria - Skin: No new complaints Physical Exam General: Cooperative, healthy appearing, comfortable, no acute distress Orientation: Patient oriented x3 Limitations: None Head: Normal to inspection Ears: Within normal limit visually Nose: Normal external nose present Face and sinus: Normal facial exam Eyes: Appearance normal, extraocular movement intact pupils reactive Neck: Normal visual inspection and supple Respiratory: Normal respiratory effort and able to speak in complete sentences. Clear to auscultation, no stridor Cardiovascular: S1 and S2 GI: Normal to inspection. Soft to palpation and nontender Skin: Turgor normal, no acute findings Neuro: Patient oriented x3, motor sensory intact, balance intact, tandem pass Extremities: Normal to inspection Patient Instructions - through Cardiology patient taking multiple anticoagulants - Maintain caution to avoid falls and injuries - Verify that all prescriptions come from cardiology office - Schedule next physical examination with front desk specialist - Receive flu vaccine to prevent illness [facility] Medical History Hypertension, essential Diverticulosis Tubular adenoma of colon Major depression, recurrent Obesity due to excess calories Surgical History Hx of colonoscopy Hx of wisdom tooth extraction Family History Father HTN (hypertension) Mother Diabetes mellitus Myocardial infarction Brother No problems noted. Brother No problems noted. Sister No problems noted. Sister No problems noted. Sister No problems noted. Sister No problems noted. Sister No problems noted. Sister No problems noted. Social History Housing: House Alcohol intake: current Alcohol intake frequency: a few times a month Patient Tobacco Use Status: Current someday Tobacco user Tobacco use type: Cigarette Years Smoked: 5 years e-Cigarette/Vaping Use: Never Used service: No Current occupational status: employed Cognitive needs: No Hearing needs: No Vision needs: No Questionnaire Thrive Questionnaire Date Thrive assessed: 03/17/24 I am a: Patient What is your living situation today?: I have a steady place to live Within the past 12 months, did the food you bought not last and you didn't have the money to get more?: Sometimes True Within the past 12 months, did you worry whether your food would run out before you got money to buy more?: Sometimes True Do you have trouble paying for medicines?: I choose not to answer this question Do you have trouble getting transportation to medical appointments?: No Do you have trouble paying your heating and electricity bill?: Yes Do you have trouble taking care of your child, family member or friend?: I choose not to answer this question Do you have trouble with day-to-day activities such as bathing, preparing meals, shopping, managing finances, etc.?: No Are you currently unemployed and looking for a job?: No Are you interested in more education?: No Please select the resources that you would like help with: None Currently or been in a relationship where the following occur: No concerns reported THRIVE Score: 3 AUDIT C Alcohol Use Questionnaire (AUDIT-C) 1. How often do you have a drink containing alcohol?: 2-4 times a month 2. How many drinks containing alcohol do you have on a typical day when you are drinking?: 3 or 4 3. How often do you have six or more drinks on one occasion?: Less than monthly Total Score: 4 Score Reviewed/Action Taken: Yes GOSIA-7 AMB Questionnaire GOSIA-7 Date GOSIA - 7 assessed: 10/24/23 Source: Developed by Drs. Kavin Hernandez, Virginia Bashir, Kali Roldan and colleagues, with an educational galileo from [employer]. Physical exam (Primary Care) Vital Signs: Last Vital Signs Pulse 62 03/17/24 15:22 BP 108/72 03/17/24 15:22 Pulse Ox 98 03/17/24 15:22 Oxygen Delivery Method Room Air 03/17/24 15:22 BMI result Body Mass Index 28.9 Tobacco/Smoking Status: Tobacco use Status Tobacco use date assessed 03/17/24 03/17/24 15:23 Patient Tobacco Use Status Current someday Tobacco 03/17/24 15:23 Tobacco use type Cigarette 03/17/24 15:23 e-Cigarette/Vaping Use Never Used 03/17/24 15:23 Thrive Assessment: Date of Thrive Assessment Date Thrive assessed 03/17/24 03/17/24 15:23 Currently or been in a relationship where the following occur: No concerns reported Office Procedures Flu Questionnaire Does the patient have a severe egg allergy?: No Does the patient have severe life threatening allergies?: No Does the patient have a fever or illness today?: No Has the patient ever had Guillain-[place] Syndrome?: No Has the patient ever had any past reaction to a flu shot?: No Immunizations Fluarix Triv [id number] (PF) 45 mcg (15 mcg x 3)/0.5 mL IM syringe Performing Provider: Eva Barros MD Performing [place] [facility] Administered by: Daryl Estevez CMA on 03/17/24 16:11 Dose Route Admin Location Dispensed Lot Number Expiration Date NDC [place] [employer] [place] 0.5 mL IM Right Deltoid 0.5 mL [id number] 09/27/24 [id number] [place] VIS Given Date VIS Provided VIS Publication Date 03/17/24 Single Vaccine 20 Eligibility Eligibility Date Funding Source Not [facility] Eligible 03/17/24 Private Coding Level of Care Code Est Pt Level 3 (50611) Est Pt Prev Care 40-64y(66279) Diagnoses Encounter for general adult medical examination with abnormal findings Z00.01 Hx of nursing home use of blood thinners Z92.29 Ventricular hypokinesia I51.89 Hypertension, essential I10 Coronary artery disease involving [place] coronary artery of [place] heart without angina pectoris I25.10 Associated angina: without angina Coronary Disease-Associated Artery/Lesion type: [place] artery [place] vs. transplanted heart: [place] heart Paroxysmal atrial fibrillation I48.0 Atrial fibrillation type: paroxysmal Lipid disorder E78.9 Assessment & Plan Assessment & Plan (1) Encounter for general adult medical examination with abnormal findings: Code(s): Z00.01 - Encounter for general adult medical examination with abnormal findings Category: Medical (2) Hx of nursing home use of blood thinners: Code(s): Z92.29 - Personal history of other drug therapy Category: Medical (3) Ventricular hypokinesia: Code(s): I51.89 - Other ill-defined heart diseases Category: Medical (4) Hypertension, essential: Code(s): I10 - Essential (primary) hypertension Category: Medical (5) CAD (coronary artery disease): Code(s): I25.10 - Atherosclerotic heart disease of [place] coronary artery without angina pectoris Category: Medical Qualifiers: Associated angina: without angina Coronary Disease-Associated Artery/Lesion type: [place] artery [place] vs. transplanted heart: [place] heart Qualified Code(s): I25.10 - Atherosclerotic heart disease of [place] coronary artery without angina pectoris (6) A-fib: Code(s): I48.91 - Unspecified atrial fibrillation Category: Medical Qualifiers: Atrial fibrillation type: paroxysmal Qualified Code(s): I48.0 - Paroxysmal atrial fibrillation (7) Lipid disorder: Code(s): E78.9 - Disorder of lipoprotein metabolism, unspecified Category: Medical Plan History - bulleted - The patient is a 58 year old male presenting for a routine physical examination. - coronary artery stenting: Hospitalized earlier, management involves multiple anticoagulants. - Hypertension: Currently being managed through Cardiology - Hyperlipidemia: Undergone recent lipid profile testing two months ago. Health Maintenance - Colonoscopy performed in June by Dr. [facility]; next scheduled in three years. - Flu vaccine requested during the visit. [place] of Care - Care coordinated through cardiology at [facility], with next appointment on May 26. - [facility] Medications - Amiodarone - Eliquis (Apixaban) - Atorvastatin for Hyperlipidemia - Clopidogrel - Valsartan for Hypertension - Spironolactone for Heart Failure - Vitamin B1 Review of Systems - Cardiovascular: No chest pains - General: No fever no chills - Neurological: No headaches no dizziness - Ear nose throat: No sore throat no hearing difficulty no ear pain - Musculoskeletal: Usual aches and pains nothing new - Cardiovascular: No syncope, no chest pain, no palpitations - Gastrointestinal: No nausea vomiting or diarrhea - Endocrine: No polyuria polydipsia no heat intolerance - Genitourinary: No dysuria - Skin: No new complaints Physical Exam General: Cooperative, healthy appearing, comfortable, no acute distress Orientation: Patient oriented x3 Limitations: None Head: Normal to inspection Ears: Within normal limit visually Nose: Normal external nose present Face and sinus: Normal facial exam Eyes: Appearance normal, extraocular movement intact pupils reactive Neck: Normal visual inspection and supple Respiratory: Normal respiratory effort and able to speak in complete sentences. Clear to auscultation, no stridor Cardiovascular: S1 and S2 GI: Normal to inspection. Soft to palpation and nontender Skin: Turgor normal, no acute findings Neuro: Patient oriented x3, motor sensory intact, balance intact, tandem pass Extremities: Normal to inspection Patient Instructions - through Cardiology patient taking multiple anticoagulants - Maintain caution to avoid falls and injuries - Verify that all prescriptions come from cardiology office - Schedule next physical examination with front desk specialist - Receive flu vaccine to prevent illnes Orders: Orders Influenza [id number] Immunization 03/17/24 Z23 - Encounter for immunization
== END 2024-03-17 16:03 | disposition home or self-care (01) ==
PROVIDERS: PCP Internal Medicine; Visit Provider Internal Medicine
DX: Z23 Encounter for immunization (principal)

== ENCOUNTER → 2024-03-17 15:18 | Outpatient (BNVA) | payer OTHER, SELFPAY | PROVIDERS: PCP Internal Medicine; Visit Provider Internal Medicine | DX: Z00.01 Encounter for general adult medical examination with abnormal findings (principal); Z23 Encounter for immunization; I10 Essential (primary) hypertension; I51.89 Other ill-defined heart diseases; I25.10 Atherosclerotic heart disease of native coronary artery without angina pectoris; I48.0 Paroxysmal atrial fibrillation; E78.9 Disorder of lipoprotein metabolism, unspecified; Z92.29 Personal history of other drug therapy | CPT/HCPCS: 90471; 90656; 99396 ==

== ENCOUNTER 2024-04-30 10:00 | Outpatient (RCR) | payer OTHER, SELFPAY | END 2024-05-03 06:35 | disposition home or self-care (01) | LOC: HO.CR 10:00 | PROVIDERS: PCP Internal Medicine; Visit Provider Nurse Practitioner Acute Care | DX: I25.10 Atherosclerotic heart disease of native coronary artery without angina pectoris (principal) | CPT/HCPCS: 93798 ==

== ENCOUNTER 2025-03-22 14:01 | Outpatient (AMB) | payer OTHER, SELFPAY ==
--- NOTE | 2025-03-22 14:02 | A.OFFPC_ITS ---
Vital Signs 03/22/25 14:04 Height 5 ft 10 in Weight 201 lb BMI 28.8 BP 120/78 Blood Pressure Location Lt brachial Position Sitting Pulse 62 Pulse Source Pulse Oximeter Pulse Oximetry (%) 98 Intake Visit Reasons: PE- PHQ-9 needed Allergies No Known Allergies Allergy (Verified 03/22/25 14:04) Medication List - Last Reconciled 03/22/25 by Eva Barros MD amiodarone 200 mg PO BID apixaban (Eliquis) 5 mg PO BID atorvastatin 80 mg PO DAILY clopidogrel 75 mg PO DAILY dapagliflozin propanediol (Farxiga) 5 mg PO DAILY eplerenone (Inspra) mg PO metoprolol succinate ER 37.5 mg PO DAILY thiamine HCl (vitamin B1) 100 mg PO DAILY torsemide 20 mg PO DAILY valsartan 40 mg PO DAILY 90 days Tobacco use date assessed: 03/22/25 Dental Screening Dental Screen Date: 03/22/25 Did you have a dental visit in the last 12 months?: No Did you have a dental problem in the last 6 months where you did not have access to dental care?: No Was dental information given to patient?: Patient declined HPI HPI Comments History of Present Illness Details History of Present Illness The patient is a 59 year old male presenting for a physical examination. Coronary Artery Disease: - The patient has a history of coronary artery disease and underwent stenting . - He is managed by [facility] a nd sees three cardiologists, including Dr. Sanchez and Dr. Massey. - His last cardiology appointment was tw o to three months ago, and he has another one scheduled for May. - A recent cardiac MRI indicated his con dition is stable with medical management. Hypertension and Hyperlipidemia: - Both hypertension and hyperlipidemia a re managed by his cardiology team. Health Maintenance: - The patient had a colonoscopy in June of last year with Dr. Stein, with the next one due in two years. - He is due for blood tests, with his labs done in the summer; he consented to non-fasting labs today to check liver and kidney function. Substance Use History: - The patient has a history of cocaine a buse and alcoholism. - He denies current cocaine use and repo rts drinking alcohol infrequently. Chronic Depression: - The patient has a history of chronic d epression. stable at this time off meds Medical History: - Coronary artery disease, status post s tenting last year - Hypertension - Hyperlipidemia - Cocaine abuse - Alcoholism - Chronic depression Social History: - Employment: The patient is no longer w [employer] Health Maintenance - Colonoscopy: Last performed in June the previous year, with the next one scheduled in 2 years. - Immunizations: Received influenza and pneumonia vaccines today. - He is due for a tetanus vaccine but de clined it at this visit. - Lab Work: Due for blood tests, which w ere ordered for today to check liver, kidney function, vitamin D, and B12 levels. [place] of Care - The patient is [facility] for his coronary artery disease, hypertension, and hyperlipidemia. - He sees Dr. Sanchez, Dr. 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 - His colonoscopy was performed by Dr. Benigno galvan. Medications - According to a cardiac rehab note from March of this year, the patient is on the following medications: - Amiodarone 200 mg daily - Atorvastatin 80 mg - Eliquis 5 mg BID - Farxiga 5 mg daily - Metoprolol 25 mg daily - Plavix 75 mg daily - Torsemide 20 mg daily - Valsartan 40 mg daily - Miralax - Vitamin B1 PFSH Medical History Hypertension, essential Diverticulosis Tubular adenoma of colon Major depression, recurrent Obesity due to excess calories Surgical History Hx of colonoscopy Hx of wisdom tooth extraction Family History Father HTN (hypertension) Mother Diabetes mellitus Myocardial infarction Brother No problems noted. Brother No problems noted. Sister No problems noted. Sister No problems noted. Sister No problems noted. Sister No problems noted. Sister No problems noted. Sister No problems noted. Social History Housing: House Alcohol intake: current Alcohol intake frequency: a few times a month Patient Tobacco Use Status: Former Tobacco user Tobacco use type: Cigarette Years Smoked: 5 years e-Cigarette/Vaping Use: Never Used service: No Current occupational status: disabled Cognitive needs: No Hearing needs: No Vision needs: No Questionnaire PHQ-9 Over the last 2 weeks, how often have you been bothered by any of the following problems? 1. Little interest or pleasure in doing things: several days 2. Feeling down, depressed, or hopeless: several days 3. Trouble falling or staying asleep, or sleeping too much: several days 4. Feeling tired or having little energy: several days 5. Poor appetite or overeating: several days 6. Feeling bad about yourself - or that you are a failure or have let yourself or your family down: not at all 7. Trouble concentrating on things, such as reading the newspaper or watching television: several days 8. Moving or speaking so slowly that other people could have noticed. Or the opposite - being so fidgety or restless that you have been moving around a lot more than usual: not at all 9. Thoughts that you would be better off or of hurting yourself in some way: not at all Total score: 6 Depression Screening Interpretation: Positive Depression Screening Done: Yes 48331 - PHQ-9 Billing: Yes Source: Developed by Drs. Kavin Hernandez, Virginia Bashir, Kali Roldan and colleagues, with an educational galileo from [employer]. Thrive Questionnaire Date Thrive assessed: 03/22/25 I am a: Patient What is your living situation today?: I have a steady place to live Within the past 12 months, did the food you bought not last and you didn't have the money to get more?: Sometimes True Within the past 12 months, did you worry whether your food would run out before you got money to buy more?: Sometimes True Do you have trouble paying for medicines?: I choose not to answer this question Do you have trouble getting transportation to medical appointments?: No Do you have trouble paying your heating and electricity bill?: I choose not to answer this question Do you have trouble taking care of your child, family member or friend?: I choose not to answer this question Do you have trouble with day-to-day activities such as bathing, preparing meals, shopping, managing finances, etc.?: I choose not to answer this question Are you currently unemployed and looking for a job?: I choose not to answer this question Are you interested in more education?: No Please select the resources that you would like help with: None Currently or been in a relationship where the following occur: I choose not to answer THRIVE Score: 2 AUDIT C Alcohol Use Questionnaire (AUDIT-C) 1. How often do you have a drink containing alcohol?: 2-4 times a month 2. How many drinks containing alcohol do you have on a typical day when you are drinking?: 3 or 4 3. How often do you have six or more drinks on one occasion?: Less than monthly Total Score: 4 Score Reviewed/Action Taken: Yes GOSIA-7 AMB Questionnaire GOSIA-7 Date GOSIA - 7 assessed: 03/22/25 Feeling nervous, anxious, or on edge: 3 = Nearly every day Not being able to stop or control worryin = Several days Worrying too much about different things: 1 = Several days Trouble relaxin = Several days Being so restless that it is hard to sit still: 1 = Several days Becoming easily annoyed or irritable: 1 = Several days Feeling afraid as if something awful might happen: 1 = Several days Total GOSIA-7 score (0-4 normal; 5-9 mild; 10-14 moderate; 15-21 severe): 9 Source: Developed by Drs. Kavin Hernandez, Virginia Bashir, Kali Roldan and colleagues, with an educational galileo from [employer]. GOSIA-7 Assessment Billing GOSIA-7 Assessment Tool: GOSIA-7 Assessment 79059 (dont want meds) Review of Systems Narrative Review of Systems - General: No fever no chills - Neurological: No headaches no dizziness - Ear nose throat: No sore throat no hearing difficulty no ear pain - Cardiovascular: No syncope, no chest pain, no palpitations - Gastrointestinal: No nausea vomiting or diarrhea - Endocrine: No polyuria polydipsia no heat intolerance - Genitourinary: No dysuria - Skin: No new complaints Physical exam (Primary Care) Vital Signs: Last Vital Signs Pulse 62 03/22/25 14:04 BP 120/78 03/22/25 14:04 Pulse Ox 98 03/22/25 14:04 BMI result Body Mass Index 28.8 Tobacco/Smoking Status: Tobacco use Status Tobacco use date assessed 03/22/25 03/22/25 14:08 Patient Tobacco Use Status Former Tobacco user 03/22/25 14:08 Tobacco use type Cigarette 03/22/25 14:02 e-Cigarette/Vaping Use Never Used 03/22/25 14:02 PHQ-9: PHQ-9 Score PHQ-9: Total score 6 03/22/25 14:38 Depression Screening Interpretation: Positive Thrive Assessment: Date of Thrive Assessment Date Thrive assessed 03/22/25 03/22/25 14:08 Currently or been in a relationship where the following occur: I choose not to answer Narrative Physical Exam General: Cooperative, healthy appearing, comfortable, no acute distress Orientation: Patient oriented x3 Head: Normal to inspection Ears: Within normal limit visually Nose: Normal external nose present Face and sinus: Normal facial exam Eyes: Appearance normal, extraocular movement intact pupils reactive Neck: Normal visual inspection and supple Respiratory: Normal respiratory effort and able to speak in complete sentences. Clear to auscultation, no stridor Cardiovascular: S1 and S2 RRR, heart is regular today GI: Normal to inspection. Soft to palpation and nontender, no pain in the belly, no nausea, vomiting, or constipation Skin: Turgor normal, no acute findings Neuro: Patient oriented x3, motor sensory intact, balance intact, tandem pass, no tingling or numbness in feet unless sitting too long Extremities: Normal to inspection, no swelling in arms or legs, ROM intact . Office Procedures Flu Questionnaire Does the patient have a severe egg allergy?: No Does the patient have severe life threatening allergies?: No Does the patient have a fever or illness today?: No Has the patient ever had Guillain-[place] Syndrome?: No Has the patient ever had any past reaction to a flu shot?: No Immunizations Fluarix [id number] (PF) 45 mcg (15 mcg x 3)/0.5 mL IM syringe Performing Provider: Eva Barros MD Performing Location: [facility] [place] [facility] Administered by: Daryl Estevez CMA on 03/22/25 14:37 Dose Route Admin Location Dispensed Lot Number Expiration Date [facility] [employer] Education [employer] 0.5 mL IM Right Deltoid 0.5 mL [id number] 09/27/25 [id number] [employer] VIS Given Date VIS Provided VIS Publication Date 03/22/25 Single Vaccine 24 Eligibility Eligibility Date Funding Source [facility] Eligible 03/22/25 Private pneumoc 20-sonam conj-dip cr(PF) 0.5 mL IM syringe Performing Provider: Eva Barros MD Performing Location: [facility] – [place] [facility] Administered by: Daryl Estevez CMA on 03/22/25 14:37 Dose Route Admin Location Dispensed Lot Number Expiration Date [place] [employer] 0.5 mL IM Left Deltoid 0.5 mL [id number] 12/18/25 [id number] [employer] Total Dispensed Waste 0.5 mL 0 % VIS Given Date VIS Provided VIS Publication Date 03/22/25 Single Vaccine 24 Eligibility Eligibility Date Funding Source [facility] Eligible 03/22/25 Private Coding Level of Care Code Est Pt Prev Care 40-64y(89610) Add On Preventative Visit Only Diagnoses Encounter for general adult medical examination with abnormal findings Z00.01 Lipid disorder E78.9 Coronary artery disease involving [place] coronary artery of [place] heart without angina pectoris I25.10 Associated angina: without angina Coronary Disease-Associated Artery/Lesion type: [place] artery [place] vs. transplanted heart: [place] heart Hx of mcc use of blood thinners Z92.29 Ventricular hypokinesia I51.89 Hypertension, essential I10 Vitamin D deficiency E55.9 Additional Codes GOSIA-7 Assessment Billing - GOSIA-7 Assessment Tool: GOSIA-7 Assessment 88872 ([id number]) PHQ-9 - 41782 - PHQ-9 Billing: Yes ([id number]) Assessment & Plan Assessment & Plan (1) Encounter for general adult medical examination with abnormal findings: Code(s): Z00.01 - Encounter for general adult medical examination with abnormal findings Category: Medical (2) Lipid disorder: Code(s): E78.9 - Disorder of lipoprotein metabolism, unspecified Category: Medical (3) CAD (coronary artery disease): Code(s): I25.10 - Atherosclerotic heart disease of [place] coronary artery without angina pectoris Category: Medical Qualifiers: Associated angina: without angina Coronary Disease-Associated Artery/Lesion type: [place] artery [place] vs. transplanted heart: [place] heart Qualified Code(s): I25.10 - Atherosclerotic heart disease of [place] coronary artery without angina pectoris (4) Hx of manager behavioral use of blood thinners: Code(s): Z92.29 - Personal history of other drug therapy Category: Medical (5) Ventricular hypokinesia: Code(s): I51.89 - Other ill-defined heart diseases Category: Medical (6) Hypertension, essential: Code(s): I10 - Essential (primary) hypertension Category: Medical (7) Vitamin D deficiency: Code(s): E55.9 - Vitamin D deficiency, unspecified Category: Medical Plan Patient Instructions - You will receive a flu vaccine and a pneumonia vaccine today. - Please go to the lab to have your blood drawn today. - Schedule your next appointment at the test desk trouble locator before you leave. - Continue taking your vitamin B1. - Remember that if you get a cut or injury, you will need a tetanus shot. as you are due for that, i would recommend to get that in 2 wks from your pharm - When you see your heart doctors, please ask them to send their reports to this office. - f/u 1 year Orders: Orders Complete Blood Count Auto Diff Today E78.9 - Disorder of lipoprotein metabolism, unspecified, I10 - Essential (primary) hypertension, I25.10 - Atherosclerotic heart disease of [place] coronary artery without angina pectoris, I48.0 - Paroxysmal atrial fibrillation, I51.89 - Other ill-defined heart diseases, Z00.01 - Encounter for general adult medical examination with abnormal findings, Z92.29 - Personal history of other drug therapy Comprehensive Met. Panel Today E78.9 - Disorder of lipoprotein metabolism, unspecified, I10 - Essential (primary) hypertension, I25.10 - Atherosclerotic heart disease of [place] coronary artery without angina pectoris, I48.0 - Paroxysmal atrial fibrillation, I51.89 - Other ill-defined heart diseases, Z00.01 - Encounter for general adult medical examination with abnormal findings, Z92.29 - Personal history of other drug therapy LDL Cholesterol Direct Today E78.9 - Disorder of lipoprotein metabolism, unspecified, I10 - Essential (primary) hypertension, I25.10 - Atherosclerotic heart disease of [place] coronary artery without angina pectoris, I48.0 - Paroxysmal atrial fibrillation, I51.89 - Other ill-defined heart diseases, Z00 .01 - Encounter for general adult medical examination with abnormal findings, Z92.29 - Personal history of other drug therapy TSH reflex Free T4 Today E78.9 - Disorder of lipoprotein metabolism, unspecified, I10 - Essential (primary) hypertension, I25.10 - Atherosclerotic heart disease of [place] coronary artery without angina pectoris, I48.0 - Paroxysmal atrial fibrillation, I51.89 - Other ill-defined heart diseases, Z00.01 - Encounter for general adult medical examination with abnormal findings, Z92.29 - Personal history of other drug therapy Hemoglobin A1c Today E78.9 - Disorder of lipoprotein metabolism, unspecified, I10 - Essential (primary) hypertension, I25.10 - Atherosclerotic heart disease of [place] coronary artery without angina pectoris, I48.0 - Paroxysmal atrial fibrillation, I51.89 - Other ill-defined heart diseases, Z00.01 - Encounter for general adult medical examination with abnormal findings, Z92.29 - Personal history of other drug therapy Influenza [id number] Immunization Today Z23 - Encounter for immunization Vitamin D 25-OH (D2 and D3) Today E55.9 - Vitamin D deficiency, unspecified Vitamin B12 Today E55.9 - Vitamin D deficiency, unspecified Pneumococcal 20 Immunization Today Z23 - Encounter for immunization
[2025-03-22 14:04] VITALS: BP 120/78; PULSE 62; O2SAT 98; BMI 28.8
--- OUTSIDE RECORDS SUMMARY | 2025-03-22 15:16 | XMS_ITS | Clinical Summary ---
Author Organization [facility] ity Address [address] [place] [address] Care Team Providers Care Costume Specialist Name Role Phone Unavailable Primary Care Provider Unavailabl e Medical History Medical History Date Comments Essential hypertension, benign 04/09/2006 D X:Essential hypertension, benign Alcohol use 08/01/2008 DX:Alcohol use; COMMENT: 24 beers per week Family History Relation Name Status Comments Father Alive 9 sibs Mother (Age 65) dm htn chf Social History Tobacco Use Types Packs/Day Years Used Date Smoking Tobacco: Former Alcohol Use Standard Drinks/Week Comments Not Asked 0 (1 standard drink = 0.6 oz pur e alcohol) Sex and Gender Information Value Date Recorded Sex Assigned at Not on file Legal Sex Male 2:40 PM EST Gender Identity Not on file Sexual Orientation Not on file Plan of Treatment Health Maintenance Due Date Last Done Comments DTaP,Tdap,and Td Vaccines (1 - Tdap) 1984 Hepatitis B Vaccines (1 of 3 - 19+ 3-dose series) 1984 Pneumococcal Vaccine: 50+ Ye ars (1 of 1 - PCV) 2015 Zoster Vaccines (1 of 2) 2015 Depression Screening 03/31/2024 COVID-19 Vaccine (1 - 2024-2 6 season) 2024 Influenza Vaccine (#1) 2024 RSV Immunization Adult Patie nts (1 - 1-dose 75+ series) 2040 HIB Vaccines Aged Out No longer eligi ble based on patient's age to complete this topic HPV Vaccines Aged Out No longer eligi ble based on patient's age to complete this topic Hepatitis A Vaccines Aged Out No long er eligible based on patient's age to complete this topic IPV Vaccines Aged Out No longer eligi ble based on patient's age to complete this topic MMR Vaccines Aged Out No longer eligi ble based on patient's age to complete this topic Meningococcal ACWY Vaccine Aged Out N o longer eligible based on patient's age to complete this topic Meningococcal B Vaccine Aged Out No l onger eligible based on patient's age to complete this topic RSV Immunization Patients Un taqueria 20 months Aged Out No longer eligible b ased on patient's age to complete this topic Varicella Vaccines Aged Out No longer eligible based on patient's age to complete this topic
== END 2025-03-22 14:39 | disposition home or self-care (01) ==
LOC: HO.HMCC 14:02
PROVIDERS: PCP Internal Medicine; Visit Provider Internal Medicine
DX: Z00.01 Encounter for general adult medical examination with abnormal findings (principal); E78.9 Disorder of lipoprotein metabolism, unspecified; I25.10 Atherosclerotic heart disease of native coronary artery without angina pectoris; Z92.29 Personal history of other drug therapy; I51.89 Other ill-defined heart diseases; I10 Essential (primary) hypertension; E55.9 Vitamin D deficiency, unspecified; Z23 Encounter for immunization

== ENCOUNTER → 2025-03-22 14:01 | Outpatient (BNVA) | payer OTHER, SELFPAY | PROVIDERS: PCP Internal Medicine; Visit Provider Internal Medicine | DX: Z00.01 Encounter for general adult medical examination with abnormal findings (principal); I10 Essential (primary) hypertension; I51.89 Other ill-defined heart diseases; E55.9 Vitamin D deficiency, unspecified; I25.10 Atherosclerotic heart disease of native coronary artery without angina pectoris; E78.9 Disorder of lipoprotein metabolism, unspecified; Z92.29 Personal history of other drug therapy; Z79.899 Other long term (current) drug therapy; Z23 Encounter for immunization; Z13.31 Encounter for screening for depression; Z13.39 Encounter for screening examination for other mental health and behavioral disorders | CPT/HCPCS: 90471; 90472; 90656; 90677; 96127; 99396 ==

== ENCOUNTER 2025-03-23 12:57 | Outpatient (REF) | payer OTHER, SELFPAY ==
--- OUTSIDE RECORDS SUMMARY | 2025-03-23 13:00 | XMS_ITS | Clinical Summary ---
Author Organization [facility] ity Address [address] [place] [address] Care Team Providers Care Patient Scheduling Manager Name Role Phone Unavailable Primary Care Provider [...]
[2025-03-23 14:48] LABS: MANUAL DIFF FLAG NO
[2025-03-23 15:15] LABS: Hematocrit 50.7 % (42.0-52.0); Hemoglobin 16.9 g/dl (14.0-18.0); Imm Gran Abs Auto 0.03 X10*3/uL (0.00-0.03); Imm Gran Pct Auto 0.5 % (0.0-0.4); Lymphocytes Absolute Auto 1.7 X10*3/uL (1.2-4.9); Mean Corpuscular HGB Conc 33.3 g/dl (31.0-36.0); Mean Corpuscular Hemoglobin 34.1 pg (27.0-33.0); Mean Corpuscular Volume 102.4 fL (80.0-98.0); NRBC Abs Auto 0.000 X10*3/uL (0.0-0.012); NRBC Pct Auto 0.0 /100WBC (0.0-0.2); Platelet Count 279 X10*3/uL (160-400); Red Blood Count 4.95 X10*6/uL (4.60-5.80); White Blood Count 6.3 X10*3/uL (4.8-10.8)
[2025-03-23 16:28] LABS: Alanine Aminotransferase 27 U/L (0-40); Albumin Level 4.2 g/dL (3.5-5.0); Alkaline Phosphatase 76 U/L (39-117); Anion Gap 11 (12-20); Aspartate Amino Transferase 31 U/L (5-37); Blood Urea Nitrogen 13 mg/dL (9-16); Calcium 9.2 mg/dL (8.4-10.2); Carbon Dioxide 29 mmol/L (22-29); Chloride 105 mmol/L (96-108); Estimated Glomerular Filt Rate 55; Potassium 4.2 mmol/L (3.3-5.1); Sodium 141 mmol/L (135-145); Total Protein 7.3 g/dL (6.5-8.0)
[2025-03-23 16:40] LABS: Vitamin B12 293 pg/mL (200-900)
[2025-03-30 12:41] LABS: Vitamin D 25-OH, D2 <4; Vitamin D 25-OH, D3 10
[2025-03-30 12:42] LABS: Vitamin D 25-OH, Total 10
== END 2025-03-23 12:58 | disposition home or self-care (01) ==
LOC: HO.HMGCLDS 12:57
PROVIDERS: PCP Internal Medicine; Visit Provider Internal Medicine
DX: Z00.00 Encounter for general adult medical examination without abnormal findings (principal); I25.10 Atherosclerotic heart disease of native coronary artery without angina pectoris; E78.9 Disorder of lipoprotein metabolism, unspecified; I48.0 Paroxysmal atrial fibrillation; I11.9 Hypertensive heart disease without heart failure; I51.89 Other ill-defined heart diseases; E55.9 Vitamin D deficiency, unspecified; Z92.29 Personal history of other drug therapy
CPT/HCPCS: 36415; 80053; 82306; 82607; 83036; 83721; 84443; 85025